=== PATIENT | female | born 1955 | race Caucasian/White ===

== ENCOUNTER → 2017-06-11 | Outpatient (CLI) | payer BC, SELFPAY | PROVIDERS: Visit Provider Internal Medicine | DX: R11.10 Vomiting, unspecified (principal) ==

== ENCOUNTER → 2017-06-20 | Outpatient (CLI) | payer BC, SELFPAY | PROVIDERS: PCP Internal Medicine; Visit Provider Internal Medicine | DX: R11.10 Vomiting, unspecified (principal) | CPT/HCPCS: 78264; A9541 ==

== ENCOUNTER → 2017-10-15 10:54 | Outpatient (CLI) | payer BC, SELFPAY ==
[2017-10-15 12:40] LABS: Alanine Aminotransferase 37 U/L (12-78); Albumin Level 4.1 gm/dL (3.4-5.0); Albumin/Globulin Ratio 1.1 (1.1-1.8); Alkaline Phosphatase 74 U/L (46-116); Anion Gap 13.1 mEq/L (5-15); Aspartate Amino Transferase 27 U/L (15-37); Bilirubin,Total 0.6 mg/dL (0.2-1.0); Blood Urea Nitrogen 18 mg/dL (7-18); Calcium 9.6 mg/dL (8.5-10.1); Carbon Dioxide 30 mmol/L (21.0-32.0); Chloride 104 mmol/L (98-107); Chol/HDL Ratio 2.2 (1-3.5); Cholesterol 207 mg/dL (140-200); Creatinine,Serum 0.86 mg/dL (0.55-1.02); Estimated Glomerular Filt Rate 67 ml/min (>60); GFR (African American) 81 ML/MIN (>60); Globulin 3.6 gm/dl (1.3-3.2); Glucose 95 mg/dL (74-106); HDL Cholesterol 94 mg/dL (29-89); LDL Cholesterol 89 mg/dL (0-130); Potassium 4.1 mmoL/L (3.5-5.1); Sodium 143 mmol/L (136-145); Thyroid Stimulating Hormone 1.47 uIU/ml (0.358-3.740); Total Protein,Serum 7.7 gm/dL (6.4-8.2); Triglycerides 120 mg/dL (30-200); VLDL Cholesterol 24 mg/dL (0-40)
[2017-10-18 12:42] LABS: Vitamin D 25 Hydroxy 21.9 ng/mL (30.0-100.0)
[2017-10-18 12:43] LABS: H. pylori Breath Test Negative (Negative)
== END ==
PROVIDERS: Visit Provider Internal Medicine
DX: R10.13 Epigastric pain (principal); R11.0 Nausea; E55.9 Vitamin D deficiency, unspecified; E78.5 Hyperlipidemia, unspecified; K31.84 Gastroparesis; R53.83 Other fatigue; B39.4 Histoplasmosis capsulati, unspecified; B39.3 Disseminated histoplasmosis capsulati; Z79.899 Other long term (current) drug therapy
CPT/HCPCS: 36415; 80053; 80061; 82652; 83013; 84443

== ENCOUNTER → 2017-11-13 14:39 | Outpatient (CLI) | payer BC, SELFPAY ==
--- NOTE | 2017-11-13 14:44 | XR_ITS ---
EXAM: XR lumbar spine min 4V HISTORY: ITS.REASON: LBP RADIATING TO RT HIP ORDERING PHYSICIAN: Ablerto Rowley PATIENT AGE: 62 years COMPARISON: None FINDINGS: Normal alignment. No fracture or dislocation. No lytic or blastic change. There is mild degenerative disc disease at L3-L4 with slight decrease in the disc space and small anterior osteophytes. The SI joints have an unremarkable appearance. Incidental note made of abdominal aortic calcification. IMPRESSION: Degenerative disc disease L3-L4
== END ==
PROVIDERS: PCP Internal Medicine; Visit Provider Internal Medicine
DX: M54.41 Lumbago with sciatica, right side (principal)
CPT/HCPCS: 72110

== ENCOUNTER 2018-01-09 02:10 | Observation (INO) ==
[2018-01-09 03:03] LABS: Basophils % 0.4 % (0.1-2.0); Eosinophils # 0.1 K/mm3 (0.0-0.4); Hematocrit 41.8 % (37.0-47.0); Hemoglobin 13.7 g/dL (12.2-16.2); Lymphocytes # 0.6 K/mm3 (0.7-4.5); Lymphocytes % 5.1 K/mm3 (10-50); Mean Corpuscular HGB Conc 32.7 g/dL (31.8-35.4); Mean Corpuscular Hemoglobin 29.2 pg (27.0-31.2); Mean Corpuscular Volume 89.3 fl (81-99); Mean Platelet Volume 9.2 fl (7.4-10.4); Monocytes # 0.4 K/mm3 (0.1-1.0); Neutrophils # 10.3 K/mm3 (1.8-7.8); Neutrophils % 90.5 % (37.0-80.0); Platelet Count 238 K/mm3 (142-424); Red Blood Count 4.68 M/mm3 (4.20-5.40); Red Cell Distribution Width 12.8 % (11.5-17.5); White Blood Count 11.4 K/mm3 (4.8-10.8)
[2018-01-09 03:10] LABS: Amylase 43 U/L (25-125); Lipase 133 u/L (73-393)
--- NOTE | 2018-01-09 03:10 | Emergency Department Note ---
ED Disposition Clinical Impression: Enteritis, Vasovagal episode Disposition: Admitted as Observation Condition on Discharge: Good Instructions: DI for Diarrhea and Traveler's Diarrhea -- Adult, DI for Diarrhea and Traveler's Diarrhea -- Child, DI for Nausea -- Adult, DI for Nausea -- Child Referrals: Alberto Rowley [Primary Care Provider] - - Critical Care Critical Care Time: No Attestation: On 01/09/18, the high probability of a clinically significant, sudden or life threatening deterioration of the following system(s) required my full and direct attention, intervention and personal management. The time I documented below is in addition to time spent performing reported procedures but includes the following listed in this critical care notation. Medical Decision Making - Medical Records Medical records reviewed: Yes: I reviewed the patient's medical records. - [place] Inquiry Pt receiving controlled substance: No Vital Signs: 01/09/18 02:12 01/09/18 02:59 Temperature 98.1 F Temperature Source Oral Pulse Rate [Right Radial] 75 83 Respiratory Rate 18 14 Blood Pressure [Right Arm] 119/55 134/96 Blood Pressure Mean [Right Arm] 76 108 Blood Pressure Source [Right Arm] Automatic Cuff Automatic Cuff Blood Pressure Position [Right Arm] Sitting Supine 02 Sat by Pulse Oximetry 99 91 L Oxygen Delivery Method Room Air Room Air - Lab Data Lab results reviewed: Yes: I reviewed the patient's lab results. Lab Results 01/09/18 02:43: WBC 11.4 H, RBC 4.68, Hgb 13.7, Hct 41.8, MCV 89.3, MCH 29.2, MCHC 32.7, RDW 12.8, Plt Count 238, MPV 9.2, Neut % (Auto) 90.5 H, Lymph % (Auto ) 5.1 L, [place] % (Auto) 3.0, Eos % (Auto) 1.0, Baso % (Auto) 0.4, Neut # (Auto) 10.3 H, Lymph # (Auto) 0.6 L, [place] # (Auto) 0.4, Eos # (Auto) 0.1, Baso # (Auto ) 0.0, Total Counted 100, Neutrophils % (Manual) 94 H, Lymphocytes % (Manual) 4 L, Monocytes % (Manual) 1 L, Eosinophils % (Manual) 1, Platelet Estimate Normal , Anisocytosis 1+ 01/09/18 02:43: Troponin I < 0.02, Amylase 43, Lipase 133 01/09/18 02:43: Lactic Acid 1.6 01/09/18 02:43: Sodium 140, Potassium 3.9, Chloride 104, Carbon Dioxide 29, Anion Gap 10.9, BUN 19 H, Creatinine 0.94, Estimated Creat Clear 62, Estimated GFR 60, Est GFR ( Amer) 73, Glucose 135 H, Calcium 9.1, Total Bilirubin 0.7, Direct Bilirubin 0.1, Indirect Bilirubin 0.6, AST 22, ALT 32, Alkaline Phosphatase 76, Total Protein 7.4, Albumin 4.0 01/09/18 02:43: C-Reactive Protein 0.5 01/09/18 03:44: ESR 12 Result diagrams: 01/09/18 02:43 01/09/18 02:43 Orders (Tests/Meds): ED MEDICATIONS Discontinued Medications Generic Name Dose Route Start Last Admin Trade Name Freq PRN Reason Stop Dose Admin Ondansetron HCl 4 mg 01/09/18 04:59 01/09/18 05:03 Zofran 4mg/2ml Vial IV 01/09/18 05:00 4 mg ONCE ONE Administration ORDERS Category Date Time Status CT abdomen pelvis wo con Stat Cat Scan 01/09/18 02:[address] cervical spine wo con Stat Cat Scan 01/09/18 02:[address] head/brain wo con Stat Cat Scan 01/09/18 02:36 Taken - CT Data CT Scan: Head, C-Spine, Abdomen, Pelvis Time Received: 05:[address] Reviewed: Yes: I have viewed the radiologist's interpretation Preliminary Findings: Abnormal (prob enteritis ) - ECG Data Tracing #1 I reviewed this ECG and interpreted as documented below: Arrhythmias present: sinus tach Ischemic changes: non-specific ST-T wave changes - Physician Consults Physician Consulted: amarjit Reason -: Admission Nausea/Vomiting/Diarrhea HPI - General Chief complaint: Nausea/Vomiting/Diarrhea Stated complaint: Passing Out,Nausea and Vomiting Time Seen by Provider: 01/09/18 02:15 Mode of Arrival: Ambulatory Source of Information: Patient, Spouse, Medical Record Limitations: No Limitations Description of Symptoms (Recalled from ER Triage Doc. by RN): diarrhea, nausea, vomitting - experienced syncope with vomitting, ate cracker barrell for lunch - History of Present Illness HPI Narrative: wf with acute onset of n/v with loose stool but no fever or blood in stool - crampy type pain - also has prob vasovagal episodes this am MD complaint: nausea, vomiting, diarrhea, abdominal pain Onset (ago): hour(s) Associated Abdominal Pain: Yes Location of pain: periumbilical Severity: moderate Consistency: colicky Context: possible food poisoning Associated symptoms: syncope - Related Data Home Medications Medication Instructions Recorded Confirmed Omeprazole [Omeprazole 20mg 1 cap PO DAILY 01/09/18 01/09/18 Capsule] Pitavastatin Calcium [Livalo] 2 mg PO WEEKLY 01/09/18 01/09/18 Ropinirole HCl 1 tab PO HS 01/09/18 01/09/18 Allergies Allergy/AdvReac Type Severity Reaction Status Date / Time No Known Allergies Allergy Unverified 06/11/17 14:18 [facility] History I have reviewed the patient's past medical history: Yes Medical History: Denies:: Cancer, Diabetes Mellitus Type 1, Diabetes Mellitus Type 2, MRSA Amputation: No Fractures: No - Social History Alcohol Intake: never - Psychiatric History Expresses thoughts of harming self/others: None Suicide Plan Description: No Plan ROS Obtained: Yes All systems reviewed & no additional complaints - Constitutional Constitutional: Denies fever(s) - Eyes Eyes: Denies change in vision - ENT Ears, Nose, Mouth, and Throat: Denies sore throat - Cardiovascular Cardiovascular: Reports as per HPI, Denies chest pain at rest, Reports lightheadedness - Respiratory Respiratory: No cough - Gastrointestinal Gastrointestingal: Reports: as per HPI, abdominal pain, diarrhea, nausea, vomiting. Denies: bright red blood in stools, black, tarry stools - Genitourinary Female Genitourinary: Denies hematuria - Musculoskeletal Musculoskeletal: Denies joint pain, Denies joint swelling - Integumentary/Breasts Skin/Breast: Denies rash - Neurologic Neurologic: Denies headache(s), Denies seizure-like activity Physical Exam - General General appearance: in no apparent distress - Head Head exam: normocephalic - Eye Eye exam: Present: PERRL, EOMI - ENT ENT exam: Present: mucous membranes moist - Neck Neck exam: Present: trachea midline - Respiratory Respiratory exam: Present: normal lung sounds bilaterally. Absent: respiratory distress - Cardiovascular Cardiovascular exam: Present: regular rate, systolic murmur - Abdominal Exam Abdominal exam: Present: soft, tenderness Abdominal tenderness: Present: epigastrium - Extremities Exam Extremities exam: Present: full ROM - Neurological Exam Neurological exam: Present: alert, oriented X3, CN II-XII intact. Absent: motor sensory deficit - Psychiatric Psychiatric exam: Present: normal affect - Skin Skin exam: Absent: rash
[2018-01-09 03:24] LABS: Anion Gap 10.9 mEq/L (5-15); Bilirubin,Direct 0.1 mg/dL (0.0-0.2); Bilirubin,Indirect 0.6 mg/dL (0.0-0.9); Bilirubin,Total 0.7 mg/dL (0.2-1.0); Calcium 9.1 mg/dL (8.5-10.1); Potassium 3.9 mmoL/L (3.5-5.1); Total Protein,Serum 7.4 gm/dL (6.4-8.2)
[2018-01-09 05:07] LABS: Eosinophils % 1 % (0-3); Lymphocytes % 4 % (10-50); Monocytes % 1 % (2-9); Neutrophils % 94 % (42-76); Total Cells Counted 100
[2018-01-09 05:08] LABS: Anisocytosis 1+
--- NOTE | 2018-01-09 07:40 | Pharmacy Consult Notes ---
[facility] Pharmacy VTE Monitoring - Patient Demographics Admission date: 01/09/18 Report Date: 01/09/18 Time: 07:40 Allergies/Adverse Reactions: Patient Allergies No Known Allergies Allergy (Unverified 06/11/17 14:18) Height: 1.55 m Weight: 68.039 kg Patient Problems: Current Active Problems Enteritis (Acute) Vasovagal episode (Acute) - VTE Risk Labs: VTE Related Lab Results Hgb 13.7 g/dL (12.2-16.2) 01/09/18 02:43 Hct 41.8 % (37.0-47.0) 01/09/18 02:43 Plt Count 238 K/mm3 (142-424) 01/09/18 02:43 BUN 19 mg/dL (7-18) H 01/09/18 02:43 Creatinine 0.94 mg/dL (0.55-1.02) 01/09/18 02:43 Estimated Creat Clear 62 mL/min (0-300) 01/09/18 02:43 Was VTE Risk Assessment Performed: Yes VTE Score: 1 VTE Risk Level: Very Low Risk - Prophylaxis VTE Prophylaxis Ordered?: Yes Types of VTE Prophylaxis: TEDS Knee High Location of Applied Device: Bilateral Lower Extremeties - VTE Diagnosis Confirmed Treatment or plan recommended: Continue Current Treatment
[2018-01-09 08:22] VITALS: BP 111/47
--- NOTE | 2018-01-09 13:34 | H&P/Discharge Summary ---
General - General Admission date:: 01/09/18 Discharge date: 01/09/18 *Admission Date: 01/09/18 *Chief complaint: vomiting and diarrhea *History of present illness: 62 year old female presented to the ED with acute onset of vomiting and diarrhea that began last evening. She reports two syncopal episodes, one that occurred when she got out of bed and the other while she was sitting on the toilet having a bowel movement. In the ED, labs were unremarkable. CT showed mild enteritis. She was admitted to observation for IVF's and further evaluation. Today, patient reports no further vomiting. She has had one episode of diarrhea. No further syncopal/near syncopal events or dizziness. [facility] History I have reviewed the patient's past medical history: Yes Medical History: Reports:: Myocardial Infarction Denies:: Cancer, Diabetes Mellitus Type 1, Diabetes Mellitus Type 2, MRSA Other Surgeries: Yes: Appendectomy, Hysterectomy-Total, Tubal Ligation, Other ( surgery on septum) Amputation: No Fractures: No - *Social History Educational Level: Completed High School Alcohol Intake: never Occupational Status: retired Housing: house Household Members: spouse - Psychiatric History Expresses thoughts of harming self/others: None Suicide Plan Description: No Plan *Family Hx:: Coronary Artery Disease, Diabetes Review of Systems - Review of Systems Review of systems:: pertinent systems reviewed and negative unless documented below - Constitutional Reports fever(s), Reports malaise - *Gastrointestinal Reports abdominal pain, Reports loose stools, Reports nausea, Reports vomiting - *Neurologic Reports dizziness, Denies headache(s), Denies seizure-like activity Exam Vital signs and Labs for Last 24 Hours: Temp Pulse Resp BP Pulse Ox 98.0 F 78 16 111/47 98 01/09/18 08:00 01/09/18 08:00 01/09/18 08:00 01/09/18 08:00 01/09/18 08:00 Laboratory Results - last 24 hr 01/09/18 02:43: WBC 11.4 H, RBC 4.68, Hgb 13.7, Hct 41.8, MCV 89.3, MCH 29.2, MCHC 32.7, RDW 12.8, Plt Count 238, MPV 9.2, Neut % (Auto) 90.5 H, Lymph % (Auto ) 5.1 L, [place] % (Auto) 3.0, Eos % (Auto) 1.0, Baso % (Auto) 0.4, Neut # (Auto) 10.3 H, Lymph # (Auto) 0.6 L, [place] # (Auto) 0.4, Eos # (Auto) 0.1, Baso # (Auto ) 0.0, Total Counted 100, Neutrophils % (Manual) 94 H, Lymphocytes % (Manual) 4 L, Monocytes % (Manual) 1 L, Eosinophils % (Manual) 1, Platelet Estimate Normal , Anisocytosis 1+ 01/09/18 02:43: Troponin I < 0.02, Amylase 43, Lipase 133 01/09/18 02:43: Lactic Acid 1.6 01/09/18 02:43: Sodium 140, Potassium 3.9, Chloride 104, Carbon Dioxide 29, Anion Gap 10.9, BUN 19 H, Creatinine 0.94, Estimated Creat Clear 62, Estimated GFR 60, Est GFR ( Amer) 73, Glucose 135 H, Calcium 9.1, Total Bilirubin 0.7, Direct Bilirubin 0.1, Indirect Bilirubin 0.6, AST 22, ALT 32, Alkaline Phosphatase 76, Total Protein 7.4, Albumin 4.0 01/09/18 02:43: C-Reactive Protein 0.5 01/09/18 03:44: ESR 12 01/09/18 10:50: Stl Aeromonas (PCR) Not detected, Stl C. cayetanensis PCR Not detected, Stool Rotavirus (PCR) Not detected, Stl Adenov F 40/41 PCR Not detected, Stool Astrovirus (PCR) Not detected, Stool Campylobacter PCR Not detected, Stl C.difficile Tox PCR Not detected, Stool Cryptosporidium PCR Not detected, Stl E.coli Shiga Tox PCR Not detected, Stool E coli O157 PCR Not detected, Stl Enterotoxigenic E PCR Not detected, Stool EPEC (PCR) Not detected , Stool EAEC (PCR) Not detected, Stl E. histolytica PCR Not detected, Stool Giardia Lamblia PCR Not detected, Stool Salmonella PCR Not detected, Stool Sapovirus (PCR) Not detected, Stl P. shigelloides PCR Not detected, Stl Shigella /EIEC PCR Not detected, St Y.enterocolitica PCR Not detected, Stool Vibrio (PCR ) Not detected, Stl Vibrio cholerae PCR Not detected, Stl Norovirus GI/GII PCR Detected A I & O for Last 24 hours: Intake & Output 01/07/18 01/08/18 01/09/18 01/10/18 11:59 11:59 11:59 11:59 Intake Total 1000 / 1000 Balance 1000 / 1000 Weight 150 lb Narrative: Alert and oriented x3. Rate and rhythm regular. No LE edema. Lung sounds clear. Abdomen soft, with diffuse tenderness. Normoactive bowel sounds. Skin pink, warm and dry. No rash. Mucous membranes moist Hospital Course Hospital Course: Patient was admitted to observation. She has not had any further vomiting. Diarrhea panel was obtained which was positive for Norovirus. Her diet was slowly advanced which she tolerated well. No further dizziness. Syncopal episodes were likely vasovagal events. Discharge home with zofran PRN. See medication reconciliation for complete list. [place]/low fat diet. FU with Dr. Rowley in one week. Results Labs on day of discharge: Labs from last 24 hours 01/09/18 01/09/18 01/09/18 10:50 03:44 02:43 WBC RBC Hgb Hct MCV MCH MCHC RDW Plt Count MPV Neut % (Auto) Lymph % (Auto) [place] % (Auto) Eos % (Auto) Baso % (Auto) Neut # (Auto) Lymph # (Auto) [place] # (Auto) Eos # (Auto) Baso # (Auto) Total Counted Neutrophils % (Manual) Lymphocytes % (Manual) Monocytes % (Manual) Eosinophils % (Manual) Platelet Estimate Anisocytosis ESR 12 Sodium Potassium Chloride Carbon Dioxide Anion Gap BUN Creatinine Estimated Creat Clear Estimated GFR Est GFR ( Amer) Glucose Lactic Acid Calcium Total Bilirubin Direct Bilirubin Indirect Bilirubin AST ALT Alkaline Phosphatase Troponin I C-Reactive Protein 0.5 Total Protein Albumin Amylase Lipase Stl Aeromonas (PCR) Not detected Stl C. cayetanensis PCR Not detected Stool Rotavirus (PCR) Not detected Stl Adenov F 40/41 PCR Not detected Stool Astrovirus (PCR) Not detected Stool Campylobacter PCR Not detected Stl C.difficile Tox PCR Not detected Stool Cryptosporidium PCR Not detected Stl E.coli Shiga Tox PCR Not detected Stool E coli O157 PCR Not detected Stl Enterotoxigenic E PCR Not detected Stool EPEC (PCR) Not detected Stool EAEC (PCR) Not detected Stl E. histolytica PCR Not detected Stool Giardia Lamblia PCR Not detected Stool Salmonella PCR Not detected Stool Sapovirus (PCR) Not detected Stl P. shigelloides PCR Not detected Stl Shigella/EIEC PCR Not detected St Y.enterocolitica PCR Not detected Stool Vibrio (PCR) Not detected Stl Vibrio cholerae PCR Not detected Stl Norovirus GI/GII PCR Detected A 01/09/18 01/09/18 01/09/18 02:43 02:43 02:43 WBC RBC Hgb Hct MCV MCH MCHC RDW Plt Count MPV Neut % (Auto) Lymph % (Auto) [place] % (Auto) Eos % (Auto) Baso % (Auto) Neut # (Auto) Lymph # (Auto) [place] # (Auto) Eos # (Auto) Baso # (Auto) Total Counted Neutrophils % (Manual) Lymphocytes % (Manual) Monocytes % (Manual) Eosinophils % (Manual) Platelet Estimate Anisocytosis ESR Sodium 140 Potassium 3.9 Chloride 104 Carbon Dioxide 29 Anion Gap 10.9 BUN 19 H Creatinine 0.94 Estimated Creat Clear 62 Estimated GFR 60 Est GFR ( Amer) 73 Glucose 135 H Lactic Acid 1.6 Calcium 9.1 Total Bilirubin 0.7 Direct Bilirubin 0.1 Indirect Bilirubin 0.6 AST 22 ALT 32 Alkaline Phosphatase 76 Troponin I < 0.02 C-Reactive Protein Total Protein 7.4 Albumin 4.0 Amylase 43 Lipase 133 Stl Aeromonas (PCR) Stl C. cayetanensis PCR Stool Rotavirus (PCR) Stl Adenov F 40/41 PCR Stool Astrovirus (PCR) Stool Campylobacter PCR Stl C.difficile Tox PCR Stool Cryptosporidium PCR Stl E.coli Shiga Tox PCR Stool E coli O157 PCR Stl Enterotoxigenic E PCR Stool EPEC (PCR) Stool EAEC (PCR) Stl E. histolytica PCR Stool Giardia Lamblia PCR Stool Salmonella PCR Stool Sapovirus (PCR) Stl P. shigelloides PCR Stl Shigella/EIEC PCR St Y.enterocolitica PCR Stool Vibrio (PCR) Stl Vibrio cholerae PCR Stl Norovirus GI/GII PCR 01/09/18 02:43 WBC 11.4 H RBC 4.68 Hgb 13.7 Hct 41.8 MCV 89.3 MCH 29.2 MCHC 32.7 RDW 12.8 Plt Count 238 MPV 9.2 Neut % (Auto) 90.5 H Lymph % (Auto) 5.1 L [place] % (Auto) 3.0 Eos % (Auto) 1.0 Baso % (Auto) 0.4 Neut # (Auto) 10.3 H Lymph # (Auto) 0.6 L [place] # (Auto) 0.4 Eos # (Auto) 0.1 Baso # (Auto) 0.0 Total Counted 100 Neutrophils % (Manual) 94 H Lymphocytes % (Manual) 4 L Monocytes % (Manual) 1 L Eosinophils % (Manual) 1 Platelet Estimate Normal Anisocytosis 1+ ESR Sodium Potassium Chloride Carbon Dioxide Anion Gap BUN Creatinine Estimated Creat Clear Estimated GFR Est GFR ( Amer) Glucose Lactic Acid Calcium Total Bilirubin Direct Bilirubin Indirect Bilirubin AST ALT Alkaline Phosphatase Troponin I C-Reactive Protein Total Protein Albumin Amylase Lipase Stl Aeromonas (PCR) Stl C. cayetanensis PCR Stool Rotavirus (PCR) Stl Adenov F 40/41 PCR Stool Astrovirus (PCR) Stool Campylobacter PCR Stl C.difficile Tox PCR Stool Cryptosporidium PCR Stl E.coli Shiga Tox PCR Stool E coli O157 PCR Stl Enterotoxigenic E PCR Stool EPEC (PCR) Stool EAEC (PCR) Stl E. histolytica PCR Stool Giardia Lamblia PCR Stool Salmonella PCR Stool Sapovirus (PCR) Stl P. shigelloides PCR Stl Shigella/EIEC PCR St Y.enterocolitica PCR Stool Vibrio (PCR) Stl Vibrio cholerae PCR Stl Norovirus GI/GII PCR DS: Diagnosis - Discharge Diagnosis (1) Gastroenteritis and colitis, viral Status: Acute (2) Vasovagal episode Status: Resolved Discharge Medications Discharge Medications: Home Medications Medication Instructions Recorded Confirmed Type Aspirin [Aspir 81] 81 mg PO PM 01/09/18 01/09/18 History Omeprazole [Omeprazole 20mg 20 mg PO PM 01/09/18 01/09/18 History Capsule] Pitavastatin Calcium [Livalo] 2 mg PO WEEKLY 01/09/18 01/09/18 History Polyethylene Glycol 3350 [Miralax 17 gm PO DAILYP PRN 01/09/18 01/09/18 History 17gm Packet] Disposition Disposition: Home, Self-Care
== END 2018-01-09 15:30 | disposition home or self-care (01) ==
LOC: ER 02:10 → 2ND 02:10
PROVIDERS: ADMIT Internal Medicine Adolescent Medicine; ATTEND Internal Medicine Adolescent Medicine
CPT/HCPCS: 70450; 72125; 74176; 80048; 80076; 82150; 83605; 83690; 84484; 85007; 85025; 85651; 86140; 87507; 93005; 96365; 96375; 96376; 99284; G0378; J2405

== ENCOUNTER → 2018-03-25 08:44 | Outpatient (CLI) | payer BC, SELFPAY ==
--- NOTE | 2018-03-25 08:46 | MM_ITS ---
MM Dig screening mamm BI w/CAD ORDERING PHYSICIAN : Alberto Rowley PATIENT AGE: 62 years GENDER: Female COMPARISON: December 2016, October 2015, September 2014 INDICATION: ITS.REASON: SCREENING Patient takes Irosa. No hormones no new complaints family history. Cousin with breast cancer TECHNIQUE: Standard CC and MLO images were obtained. R2 CAD reviewed. FINDINGS: Moderately dense breast bilaterally . Stable mild asymmetry No new areas of significant concern. No new suspicious density suspicious calcifications. RIGHT BREAST:. However overall architecture is stable. Increased density towards the superior, upper-outer quadrant breast bilaterally most notable right, its appearance is similar to last years study as well as 2010 study. LEFT BREAST:. No new areas of concern. IMPRESSION: ... No significant new areas of concern bilateral follow-up in one year BI-RADS Category: 2 Benign Finding(s) RECOMMENDED FOLLOW-UP: 1YR 1 YEAR FOLLOW-UP (A letter has been sent to the patient regarding results of the study.)
== END ==
PROVIDERS: Family Provider Internal Medicine; PCP Internal Medicine; Visit Provider Internal Medicine
DX: Z12.31 Encounter for screening mammogram for malignant neoplasm of breast (principal)
CPT/HCPCS: 77067

== ENCOUNTER → 2018-08-25 07:39 | Outpatient (CLI) | payer BC, SELFPAY ==
--- NOTE | 2018-08-25 08:00 | US_ITS ---
US abdomen limited History: Ordering Physician:Alberto Rowley Patient Age: 63 years Comparison:None Findings: Pancreas:Unremarkable. No obvious mass or abnormal fluid collection. No ductal dilatation Liver:Unremarkable. No obvious mass or abnormal fluid collection. No ductal dilatation Right Kidney:Unremarkable. Normal size and echogenicity. No hydronephrosis Gallbladder: There are gallstones present. No gallbladder wall thickening, pericholecystic fluid, or biliary dilatation is evident. Common bile duct is 4 mm. IMPRESSION: Cholelithiasis
== END ==
PROVIDERS: PCP Internal Medicine; Visit Provider Internal Medicine
DX: R12 Heartburn (principal)
CPT/HCPCS: 76705

== ENCOUNTER → 2018-09-29 12:53 | Outpatient (CLI) | payer BC, SELFPAY ==
[2018-09-29 13:21] LABS: Basophils # 0.1 K/mm3 (0-0.2); Basophils % 0.7 % (0.1-2.0); Eosinophils # 0.1 K/mm3 (0.0-0.4); Eosinophils % 2.4 % (0.1-12.0); Hematocrit 40.3 % (37.0-47.0); Hemoglobin 13.4 g/dL (12.2-16.2); Lymphocytes # 1.9 K/mm3 (0.7-4.5); Lymphocytes % 31.3 % (10-50); Mean Corpuscular HGB Conc 33.2 g/dL (31.8-35.4); Mean Corpuscular Hemoglobin 29.9 pg (27.0-31.2); Mean Platelet Volume 7.9 fl (7.4-10.4); Monocytes # 0.3 K/mm3 (0.1-1.0); Monocytes % 4.7 % (1.7-9.3); Neutrophils # 3.7 K/mm3 (1.8-7.8); Neutrophils % 60.9 % (37.0-80.0); Platelet Count 266 K/mm3 (142-424); Red Blood Count 4.47 M/mm3 (4.20-5.40); Red Cell Distribution Width 13.1 % (11.5-17.5); White Blood Count 6.1 K/mm3 (4.8-10.8)
[2018-09-29 14:31] LABS: Alanine Aminotransferase 46 U/L (12-78); Albumin/Globulin Ratio 1.1 (1.1-1.8); Alkaline Phosphatase 75 U/L (46-116); Anion Gap 15.9 mEq/L (5-15); Aspartate Amino Transferase 29 U/L (15-37); Bilirubin,Total 0.5 mg/dL (0.2-1.0); Blood Urea Nitrogen 11 mg/dL (7-18); Calcium 9.3 mg/dL (8.5-10.1); Carbon Dioxide 27 mmol/L (21.0-32.0); Chloride 104 mmol/L (98-107); Creatinine,Serum 0.86 mg/dL (0.55-1.02); Estimated Glomerular Filt Rate 66 ml/min (>60); GFR (African American) 80 ML/MIN (>60); Globulin 3.7 gm/dl (1.3-3.2); Glucose 104 mg/dL (74-106); Potassium 3.9 mmoL/L (3.5-5.1); Sodium 143 mmol/L (136-145); Total Protein,Serum 7.7 gm/dL (6.4-8.2)
== END ==
PROVIDERS: Visit Provider Surgery
DX: K82.9 Disease of gallbladder, unspecified (principal)
CPT/HCPCS: 36415; 80053; 85025

== ENCOUNTER → 2019-01-29 07:59 | Outpatient (POV) | payer BC, SELFPAY | PROVIDERS: Visit Provider Dentist | DX: Z00.00 Encounter for general adult medical examination without abnormal findings (principal) ==

== ENCOUNTER → 2019-04-02 08:29 | Outpatient (POV) | payer BC, SELFPAY | PROVIDERS: Visit Provider Dentist | DX: Z00.00 Encounter for general adult medical examination without abnormal findings (principal) ==

== ENCOUNTER → 2019-05-01 09:53 | Outpatient (CLI) | payer BC, SELFPAY ==
[2019-05-01 10:30] LABS: Basophils # 0.1 K/mm3 (0-0.2); Basophils % 0.8 % (0.1-2.0); Eosinophils # 0.2 K/mm3 (0.0-0.4); Eosinophils % 3.1 % (0.1-12.0); Hemoglobin 13.2 g/dL (12.2-16.2); Lymphocytes # 1.9 K/mm3 (0.7-4.5); Lymphocytes % 28.7 % (10-50); Mean Corpuscular HGB Conc 32.2 g/dL (31.8-35.4); Mean Corpuscular Hemoglobin 31.1 pg (27.0-31.2); Mean Corpuscular Volume 96.6 fl (81-99); Mean Platelet Volume 8.5 fl (7.4-10.4); Monocytes # 0.4 K/mm3 (0.1-1.0); Neutrophils # 4.2 K/mm3 (1.8-7.8); Neutrophils % 61.5 % (37.0-80.0); Platelet Count 232 K/mm3 (142-424); Red Blood Count 4.25 M/mm3 (4.20-5.40); Red Cell Distribution Width 13.2 % (11.5-17.5); White Blood Count 6.7 K/mm3 (4.8-10.8)
[2019-05-01 11:43] LABS: Alanine Aminotransferase 34 U/L (12-78); Albumin Level 3.9 gm/dL (3.4-5.0); Albumin/Globulin Ratio 1.3 (1.1-1.8); Alkaline Phosphatase 67 U/L (46-116); Anion Gap 10.7 mEq/L (5-15); Aspartate Amino Transferase 26 U/L (15-37); Bilirubin,Total 0.5 mg/dL (0.2-1.0); Blood Urea Nitrogen 13 mg/dL (7-18); Calcium 9.2 mg/dL (8.5-10.1); Carbon Dioxide 32 mmol/L (21.0-32.0); Chloride 105 mmol/L (98-107); Chol/HDL Ratio 2.6 (1-3.5); Cholesterol 229 mg/dL (140-200); Estimated Glomerular Filt Rate 72 ml/min (>60); GFR (African American) 87 ML/MIN (>60); Globulin 3.1 gm/dl (1.3-3.2); Glucose 95 mg/dL (74-106); HDL Cholesterol 88 mg/dL (29-89); LDL Cholesterol 117 mg/dL (0-130); Potassium 4.7 mmoL/L (3.5-5.1); Sodium 143 mmol/L (136-145); Thyroid Stimulating Hormone 2.07 uIU/ml (0.358-3.740); Triglycerides 118 mg/dL (30-200); VLDL Cholesterol 24 mg/dL (0-40)
[2019-05-01 15:44] LABS: Erythrocyte Sedimentation Rate 131 mm/hr (0-30)
== END ==
PROVIDERS: Visit Provider Internal Medicine
DX: K21.0 Gastro-esophageal reflux disease with esophagitis (principal); K31.84 Gastroparesis; R10.9 Unspecified abdominal pain
CPT/HCPCS: 36415; 80053; 80061; 84443; 85025; 85651

== ENCOUNTER → 2019-05-11 08:49 | Outpatient (CLI) | payer BC, SELFPAY ==
--- NOTE | 2019-05-11 08:57 | MM_ITS ---
PROCEDURE: MM DIG SCREENING MAMM BI W/CAD CLINICAL INDICATION: SCREENING There is a history of breast cancer patient's maternal cousin. COMPARISON: [facility] DIG MAMM-SCREEN MARY from 10/26/2015 [facility] DIG MAMM-SCREEN MARY W/CAD from 12/24/2016 [facility] MM Dig screening mamm BI w/CAD from 03/25/2018 TECHNIQUE: Standard CC and MLO images were obtained. R2 CAD reviewed. FINDINGS: Moderate fibroglandular densities are seen in the central portions of both breast and the findings of bilateral and symmetrical. There are few benign-appearing microcalcifications right breast. There is no suspicious lesion in either breast and no suspicious microcalcifications. There is small nodes in both axilla. IMPRESSION: Stable exam with no suspicious lesions seen BI-RAD Category: 2 Benign Finding(s) FOLLOW-UP: 1YR 1 Year Follow-up (A letter has been sent to the patient regarding results of the study.) Dictated by: Dr. Emmett Baker MD 05/12/2019 19:[address] Emmett Baker MD in [place] 05/12/2019 19:48
== END ==
PROVIDERS: PCP Internal Medicine; Visit Provider Internal Medicine
DX: Z12.31 Encounter for screening mammogram for malignant neoplasm of breast (principal)
CPT/HCPCS: 77067

== ENCOUNTER → 2019-05-12 07:52 | Outpatient (CLI) | payer BC, SELFPAY ==
--- NOTE | 2019-05-12 07:54 | MR_ITS ---
PROCEDURE: MR LUMBAR SPINE WO CON CLINICAL INDICATION: LUMBAGO LEFT SCIATICA The low back pain, left leg pain with numbness COMPARISON: No exams were available for comparison TECHNIQUE: Standard multiplanar multiecho sequences are performed without contrast. 3-D MIP and myelographic images are also rendered and reviewed FINDINGS: Normal alignment. The spinal cord ends at the L1-L2 level. There is a small left paracentral disc protrusion at T11-T12 without impingement. T12-L1: Unremarkable. L1-L2: Unremarkable. L2-L3: Mild facet and ligamentum hypertrophy with mild bilateral lateral recess narrowing. L3-L4: Facet ligamentum hypertrophy with mild bilateral lateral recess narrowing. Mild right-sided foraminal narrowing. Mild disc desiccation. L4-5: Mild facet ligamentum hypertrophy. L5-S1: Mild disc desiccation with mild facet and ligamentum hypertrophy and mild bilateral foraminal narrowing. No disc herniation or canal stenosis. IMPRESSION: 1. Small left paracentral disc protrusion at T11-T12 without impingement. 2. Facet ligamentum hypertrophy at multiple levels with lateral recess and foraminal narrowing along with mild degenerative disc disease. 3. No extruded herniated disc or bony canal stenosis Dictated by: Pedro Tyson MD 05/13/2019 09:22 Electronically signed by Pedro Tyson MD in [facility] 05/13/2019 09:22
--- NOTE | 2019-05-12 10:00 | NM_ITS ---
PROCEDURE: NM GASTRIC EMPTYING STUDY CLINICAL INDICATION: GASTROPARESIS COMPARISON: No exams were available for comparison TECHNIQUE: Dose: 0.51 mCi technetium sulfur colloid in a radial labeled medial FINDINGS: Time activity curve is generated following the ingestion of the radial labeled meal. The 1/2 emptying time is within normal limits at 81 minutes. 48 percent of the gastric contents had emptied during 89 minutes. Images submitted show no obvious gastroesophageal reflux. IMPRESSION: Normal gastric emptying scan Dictated by: Pedro Tyson MD 05/12/2019 19:21 Electronically signed by Pedro Tyson MD in [facility] 05/12/2019 19:21
--- NOTE | 2019-05-12 10:50 | HMH.ITSHM ---
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 []DHEA MIRALAX LIVALO PROTONIX ASA OCUVITE
== END ==
PROVIDERS: Visit Provider Internal Medicine
DX: M54.42 Lumbago with sciatica, left side (principal)
CPT/HCPCS: 72148; 76376; 78264; A9541

== ENCOUNTER → 2020-03-02 11:28 | Outpatient (CLI) | payer MEDICARE, BC, OTHER, SELFPAY ==
--- NOTE | 2020-03-02 | CT_ITS ---
PROCEDURE: CT CHEST WO CON CLINICAL INDICATION: POSITIONAL AIRWAY CLOSURE COMPARISON: CT ABDPELW/O CT ABD PELVIS W/O CONTRAST from 05/30/2014 TECHNIQUE: Axial images obtained with sagittal and coronal reformats. All CT scans at the facility use one or more dose reduction, viz: automated exposure control, ma/kV adjustment per patient size (including targeted exams where dose is matched to indication, i.e. head), or iterative reconstruction technique. FINDINGS: Patient feels like her areas being cut off when bending headboard and when raising arm above head. Axial images are obtained without contrast in neutral position the and then with patient flexing her neck and raising her arms. The airway has an unremarkable appearance throughout both positions with no evidence of airway closure in the neck or in the chest. Tracheobronchial tree has an unremarkable appearance. The incidental note is made of a few small mediastinal lymph nodes some which are calcified. Calcified granuloma is present in the lingula. There is some mild parenchymal scarring in the right upper lobe posteriorly along the major fissure. There is a 2 x 1.6 cm parenchymal opacity within the right middle lobe which may be due to an area of scarring or chronic volume loss. This was present on a older abdomen CT of 05/30/2014 is only slightly increased in size. Calcified granuloma is present within the lingula. No effusions are evident. There is mild wedge compression changes involving the T6 vertebral body with loss of height of approximately 20 percent with some cortical irregularity of the endplates. IMPRESSION: 1. No anatomical airway compromise evident 2. 2 cm parenchymal opacity within the right middle lobe which appears slightly more prominent from 05/30/2014 and may be due to an area of scarring. Consider six-month follow-up to confirm short term stability. 3. Old granulomatous disease. 4. Age indeterminate mild wedge compression changes of T6 Dictated by: Pedro Tyson MD 03/02/2020 12:49 Pedro Tyson MD in [facility] 03/02/2020 12:49
--- NOTE | 2020-03-02 | CT_ITS ---
PROCEDURE: CT SOFT TISSUE NECK WO CON CLINICAL HISTORY: POSITIONAL AIRWAY CLOSURE COMPARISON: No exams were available for comparison TECHNIQUE: Oral Contrast: None IV Contrast: None Axial images obtained with sagittal and coronal reformats. All CT scans at the facility use one or more dose reduction, viz: automated exposure control, ma/kV adjustment per patient size (including targeted exams where dose is matched to indication, i.e. head), or iterative reconstruction technique. FINDINGS: Exam is performed without contrast. Axial images are obtained without and with the patient recreate in her position that causes airway closure which was in a neck flexed position.. The nasopharynx has an unremarkable appearance. There is mild mucosal thickening of the sphenoid sinus posteriorly with a small air-fluid level in the right aspect of the sphenoid sinus. The uvula, glottic region, aryepiglottic folds, and epiglottis all have an unremarkable appearance. No significant airway narrowing is evident. No prevertebral soft tissue mass. The trachea has an unremarkable appearance. No adenopathy. Nonspecific calcifications are present in the right tonsillar area. No abscess. Incidental note is made of degenerative disc disease at C5-C6. No acute finding in the lung apices. IMPRESSION: 1. No airway closure evident. 2. Mild sphenoid sinus disease Dictated by: Pedro Tyson MD 03/02/2020 12:37 Pedro Tyson MD in [facility] 03/02/2020 12:37
== END ==
PROVIDERS: PCP Internal Medicine; Visit Provider Internal Medicine
DX: J98.8 Other specified respiratory disorders (principal)
CPT/HCPCS: 70490; 71250

== ENCOUNTER → 2020-04-12 15:10 | Outpatient (POV) | payer MEDICARE, BC, OTHER, SELFPAY | PROVIDERS: Visit Provider Dermatology | DX: Z00.00 Encounter for general adult medical examination without abnormal findings (principal) ==

== ENCOUNTER → 2020-04-25 11:07 | Outpatient (CLI) | payer MEDICARE, OTHER, SELFPAY | PROVIDERS: PCP Internal Medicine; Visit Provider Internal Medicine | DX: Z03.818 Encounter for observation for suspected exposure to other biological agents ruled out (principal); J06.9 Acute upper respiratory infection, unspecified; R05 Cough | CPT/HCPCS: U0003 ==

== ENCOUNTER → 2020-04-29 16:12 | Outpatient (CLI) | payer MEDICARE, OTHER, SELFPAY ==
--- NOTE | 2020-04-29 16:19 | XR_ITS ---
PROCEDURE: XR CHEST 2V CLINICAL HISTORY: COUGH,CONGESTION, POSTERIOR CHEST PAIN COMPARISON: CR CXR1 CHEST-PORTABLE from 05/30/[address] CHEST WO CON from 03/02/2020 FINDINGS: The cardiomediastinal silhouette and pulmonary vascularity are within normal limits. Increased density is present in the right lung base medially. Previous CT scan demonstrated a pericardial fat pad both right and left aspect of the pericardium which may in part be due to this increased density. However, the the opacification in the right lung base is slightly greater compared to the previous exam and may be related to superimposed infiltrate or enlarging nodule. There was a nodular density in this region on the previous CT scan. Calcified granuloma is present in the left lower lobe. No acute bony abnormalities. IMPRESSION: Bilateral pericardial fat pads with superimposed increased density in the right lung base medially suggestive superimposed infiltrate and/or enlarging nodule. Dictated by: Pedro Tyson MD 04/29/2020 16:38 Pedro Tyson MD in [facility] 04/29/2020 16:38
== END ==
PROVIDERS: PCP Internal Medicine; Visit Provider Internal Medicine
DX: R07.89 Other chest pain (principal); R05 Cough; R09.89 Other specified symptoms and signs involving the circulatory and respiratory systems
CPT/HCPCS: 71046

== ENCOUNTER → 2020-05-20 08:28 | Outpatient (CLI) | payer MEDICARE, OTHER, SELFPAY ==
--- NOTE | 2020-05-20 08:32 | MM_ITS ---
PROCEDURE: MM DIG SCREENING MAMM BI W/CAD Digital Breast Tomosynthesis Included CLINICAL INDICATION: SCREENING There is a history of breast cancer in the patient's maternal cousin. COMPARISON: MG DMSB DIG MAMM-SCREEN MARY W/CAD from 12/24/2016 [facility] MM Dig screening mamm BI w/CAD from 03/25/2018 MG MM DIG SCREENING MAMM BI W/CAD from 05/11/2019 TECHNIQUE: Standard CC and MLO images and 3D Tomosynthesis was obtained. R2 CAD reviewed. FINDINGS: Mild to moderate fibroglandular densities are seen in the central portions of both breasts. There is a benign-appearing calcification right breast. There is a mole marker left breast. There is no suspicious lesion and no suspicious microcalcifications. IMPRESSION: Fibrofatty parenchyma with no suspicious lesions seen BI-RAD Category: 2 Benign Finding(s) FOLLOW-UP: 1YR 1 Year Follow-up (A letter has been sent to the patient regarding results of the study.) Dictated by: Dr. Emmett Baker MD 05/24/2020 09:23 Dr. Emmett Baker MD in [place] 05/24/2020 09:23
== END ==
PROVIDERS: PCP Internal Medicine; Visit Provider Internal Medicine
DX: Z12.31 Encounter for screening mammogram for malignant neoplasm of breast (principal)
CPT/HCPCS: 77063; 77067

== ENCOUNTER → 2020-11-09 14:38 | Outpatient (CLI) | payer MEDICARE, OTHER, SELFPAY | PROVIDERS: PCP Internal Medicine; Visit Provider Internal Medicine | DX: G47.33 Obstructive sleep apnea (adult) (pediatric) (principal); G47.10 Hypersomnia, unspecified; G47.00 Insomnia, unspecified | CPT/HCPCS: G0399 ==

== ENCOUNTER 2020-12-12 10:10 | Outpatient (CLI) | payer MEDICARE, OTHER, SELFPAY ==
[2020-12-12 10:35] VITALS: BP 123/58; PULSE 73; RESP 18; TEMP 36.5; O2SAT 99
[2020-12-12 11:15] VITALS: BP 124/63; PULSE 73; RESP 20; TEMP 36.5; O2SAT 99
== END 2020-12-12 11:15 | disposition home or self-care (01) ==
LOC: INF 10:10
PROVIDERS: PCP Internal Medicine; Visit Provider Internal Medicine
DX: D50.9 Iron deficiency anemia, unspecified (principal); T45.4X5A Adverse effect of iron and its compounds, initial encounter
CPT/HCPCS: 96365; J1439

== ENCOUNTER 2020-12-19 09:55 | Outpatient (CLI) | payer MEDICARE, OTHER, SELFPAY ==
[2020-12-19 10:20] VITALS: BP 125/63; PULSE 73; RESP 18; TEMP 36.3
[2020-12-19 10:58] VITALS: BP 131/60; PULSE 69; RESP 18
== END 2020-12-19 10:58 | disposition home or self-care (01) ==
LOC: INF 09:55
PROVIDERS: Visit Provider Internal Medicine
DX: D64.9 Anemia, unspecified (principal); T45.4X5A Adverse effect of iron and its compounds, initial encounter
CPT/HCPCS: 96365; J1439

== ENCOUNTER → 2021-01-30 10:24 | Outpatient (CLI) | payer MEDICARE, OTHER, SELFPAY ==
[2021-01-30 11:53] LABS: Ferritin 250 ng/ml (11.1-264)
== END ==
PROVIDERS: Visit Provider Nurse Practitioner Family
DX: D64.9 Anemia, unspecified (principal); Z01.812 Encounter for preprocedural laboratory examination; Z20.822 Contact with and (suspected) exposure to COVID-19
CPT/HCPCS: 36415; 82728; U0003

== ENCOUNTER → 2021-02-01 20:04 | Outpatient (CLI) | payer MEDICARE, OTHER, SELFPAY | PROVIDERS: PCP Internal Medicine; Visit Provider Nurse Practitioner Family | DX: G47.33 Obstructive sleep apnea (adult) (pediatric) (principal); G47.61 Periodic limb movement disorder | CPT/HCPCS: 95811 ==

== ENCOUNTER → 2021-07-21 09:51 | Outpatient (CLI) | payer MEDICARE, OTHER, SELFPAY ==
--- NOTE | 2021-07-21 09:55 | MM_ITS ---
PROCEDURE INFORMATION: Exam: MG Bilateral Screening 3D Mammography Exam date and time: 07/21/2021 9:55 AM Age: 65 years old Clinical indication: Encounter for screening mammogram for malignant neoplasm of breast TECHNIQUE: Imaging protocol: Bilateral Screening tomosynthesis and 2D mammography including computer-aided detection (CAD) when performed. COMPARISON: 1. MG MM DIG SCREENING MAMM BI W/CAD 05/20/2020 8:30 AM 2. MG MM DIG SCREENING MAMM BI W/CAD 05/11/2019 9:00 AM 3. [facility] MM Dig screening mamm BI w/CAD 03/25/2018 8:50 AM FINDINGS: MAMMOGRAPHY: Breast composition: The breasts are heterogeneously dense, which may obscure small masses. Mass: No suspicious masses. Architectural distortion: No suspicious distortion. Calcifications: No suspicious calcifications. Asymmetric density: None. Skin thickening: None. Axillary adenopathy: None. IMPRESSION: No mammographic evidence of malignancy. Annual screening is recommended unless otherwise clinically indicated. ASSESSMENT: BI-RADS Category 1: Negative
== END ==
PROVIDERS: PCP Internal Medicine; Visit Provider Internal Medicine
DX: Z12.31 Encounter for screening mammogram for malignant neoplasm of breast (principal)
CPT/HCPCS: 77063; 77067

== ENCOUNTER → 2022-05-22 12:24 | Outpatient (CLI) | payer MEDICARE, OTHER, SELFPAY ==
[2022-05-22 14:08] LABS: Basophils # 0.1 K/mm3 (0-0.2); Basophils % 1.1 % (0.1-2.0); Eosinophils # 0.2 K/mm3 (0.0-0.4); Eosinophils % 2.6 % (0.1-12.0); Hematocrit 39.9 % (37.0-47.0); Hemoglobin 12.7 g/dL (12.2-16.2); Lymphocytes # 1.9 K/mm3 (0.7-4.5); Lymphocytes % 30.3 % (10-50); Mean Corpuscular HGB Conc 31.8 g/dL (31.8-35.4); Mean Corpuscular Hemoglobin 30.1 pg (27.0-31.2); Mean Corpuscular Volume 94.5 fl (81-99); Mean Platelet Volume 10.3 fl (7.4-10.4); Monocytes # 0.4 K/mm3 (0.1-1.0); Monocytes % 6.8 % (1.7-9.3); Neutrophils # 3.7 K/mm3 (1.8-7.8); Neutrophils % 59.1 % (37.0-80.0); Platelet Count 274 K/mm3 (142-424); Red Blood Count 4.23 M/mm3 (4.20-5.40); Red Cell Distribution Width 13.1 % (11.5-17.5); White Blood Count 6.2 K/mm3 (4.8-10.8)
[2022-05-22 14:42] LABS: Hemoglobin A1C 5.7 % (4.0-6.0)
[2022-05-22 15:00] LABS: 25-OH Vitamin D, Total 31.9 ng/mL (30-100)
[2022-05-22 15:59] LABS: Chloride 99 mmol/L (98-107); Potassium 4.4 mmoL/L (3.5-5.1); Sodium 138 mmol/L (136-145)
[2022-05-22 16:01] LABS: Alanine Aminotransferase 29 U/L (12-78); Anion Gap 10.4 mEq/L (5-15); Aspartate Amino Transferase 37 U/L (14-36); Blood Urea Nitrogen 15 mg/dl (7-17); Carbon Dioxide 33 mmol/L (22.0-30.0); Estimated Glomerular Filt Rate 72 ml/min (>60); GFR (African American) 87 ML/MIN (>60)
[2022-05-22 16:02] LABS: Albumin Level 4.3 g/dl (3.5-5.0); Albumin/Globulin Ratio 1.8 (1.1-1.8); Alkaline Phosphatase 94 U/L (38-126); Bilirubin,Total 0.5 mg/dl (0.2-1.3); Calcium 9.5 mg/dl (8.4-10.2); Chol/HDL Ratio 2.7 (1-3.5); Cholesterol 230 mg/dl (140-200); Globulin 2.4 g/dL (1.3-3.2); Glucose 83 mg/dl (74-100); HDL Cholesterol 86 mg/dl (40-60); Total Protein,Serum 6.7 g/dl (6.3-8.2); Triglycerides 211 mg/dl (30-150); VLDL Cholesterol 42 mg/dL (0-40)
[2022-05-22 16:13] LABS: Direct LDL Cholesterol 87.44 mg/dL (100-129)
== END ==
PROVIDERS: PCP Internal Medicine; Visit Provider Internal Medicine
DX: I10 Essential (primary) hypertension (principal); E78.5 Hyperlipidemia, unspecified; R53.83 Other fatigue; E55.9 Vitamin D deficiency, unspecified; R73.9 Hyperglycemia, unspecified; K31.84 Gastroparesis
CPT/HCPCS: 80053; 80061; 82306; 83036; 85025

== ENCOUNTER → 2022-07-30 10:59 | Outpatient (CLI) | payer MEDICARE, OTHER, SELFPAY ==
--- NOTE | 2022-07-30 11:04 | MM_ITS ---
PROCEDURE INFORMATION: Exam: MG Bilateral Screening 3D Mammography Exam date and time: 07/30/2022 10:53 AM Age: 66 years old Clinical indication: Screening examination. A maternal cousin had breast cancer. TECHNIQUE: Imaging protocol: Bilateral Screening tomosynthesis and 2D mammography including computer-aided detection (CAD) when performed. COMPARISON: 1. MG MM DIG SCREENING MAMM BI W/CAD 07/21/2021 9:53 AM 2. MG MM DIG SCREENING MAMM BI W/CAD 05/20/2020 8:30 AM 3. MG MM DIG SCREENING MAMM BI W/CAD 05/11/2019 9:00 AM 4. [facility] MM Dig screening mamm BI w/CAD 03/25/2018 8:50 AM FINDINGS: MAMMOGRAPHY: Breast composition: The breasts are heterogeneously dense, which may obscure small masses. Mass: None. Architectural distortion: None. Calcifications: No suspicious calcifications. Asymmetric density: None. Skin thickening: None. Axillary adenopathy: None. IMPRESSION: No mammographic evidence of malignancy. Annual screening is recommended unless otherwise clinically indicated. ASSESSMENT: BI-RADS Category 1: Negative
== END ==
PROVIDERS: PCP Internal Medicine; Visit Provider Internal Medicine
DX: Z12.31 Encounter for screening mammogram for malignant neoplasm of breast (principal)
CPT/HCPCS: 77063; 77067

== ENCOUNTER → 2022-11-23 08:38 | Outpatient (CLI) | payer MEDICARE, OTHER, SELFPAY ==
--- NOTE | 2022-11-23 08:59 | ECG_ITS ---
APPROVED REPORT Exam: Resting ECG HR:59 bpm ECG Measurements Heart Rate 59 AXES CO 151 P 61 QRSd 83 QRS 72 QT 403 T 29 QTc 403 Conclusion SINUS BRADYCARDIA LOW QRS VOLTAGE IN PRECORDIAL LEADS [QRS DEFLECTION < 1.0 mV IN CHEST LEADS] BORDERLINE ECG Electronically signed by : Alberto Rowley MD 11/26/2022 09:00:30
[2022-11-23 09:42] LABS: Basophils % 0.8 % (0.1-2.0); Eosinophils # 0.2 K/mm3 (0.0-0.4); Eosinophils % 2.8 % (0.1-12.0); Hemoglobin 13.6 g/dL (12.2-16.2); Lymphocytes # 1.9 K/mm3 (0.7-4.5); Lymphocytes % 34.1 % (10-50); Mean Corpuscular HGB Conc 33.1 g/dL (31.8-35.4); Mean Corpuscular Hemoglobin 29.9 pg (27.0-31.2); Mean Corpuscular Volume 90.4 fl (81-99); Mean Platelet Volume 8.8 fl (7.4-10.4); Monocytes # 0.4 K/mm3 (0.1-1.0); Neutrophils % 54.2 % (37.0-80.0); Platelet Count 267 K/mm3 (142-424); Red Blood Count 4.53 M/mm3 (4.20-5.40); Red Cell Distribution Width 13.1 % (11.5-17.5); White Blood Count 5.5 K/mm3 (4.8-10.8)
[2022-11-23 09:55] LABS: Chloride 98 mmol/L (98-107)
[2022-11-23 09:56] LABS: Potassium 4.3 mmoL/L (3.5-5.1); Sodium 137 mmol/L (136-145)
[2022-11-23 09:58] LABS: Alanine Aminotransferase 27 U/L (12-78); Alkaline Phosphatase 75 U/L (38-126); Anion Gap 9.3 mEq/L (5-15); Aspartate Amino Transferase 40 U/L (14-36); Bilirubin,Total 0.4 mg/dl (0.2-1.3); Blood Urea Nitrogen 13 mg/dl (7-17); Carbon Dioxide 34 mmol/L (22.0-30.0); Cholesterol 209 mg/dl (140-200); Estimated Glomerular Filt Rate 62 ml/min (>60); GFR (African American) 75 ML/MIN (>60); Triglycerides 157 mg/dl (30-150); VLDL Cholesterol 31 mg/dL (0-40)
[2022-11-23 09:59] LABS: Albumin Level 4.3 g/dl (3.5-5.0); Albumin/Globulin Ratio 1.6 (1.1-1.8); Calcium 9.3 mg/dl (8.4-10.2); Chol/HDL Ratio 1.9 (1-3.5); Globulin 2.7 g/dL (1.3-3.2); Glucose 95 mg/dl (74-100); HDL Cholesterol 108 mg/dl (40-60)
[2022-11-23 10:10] LABS: Direct LDL Cholesterol 67.65 mg/dL (100-129)
[2022-11-23 10:30] LABS: Thyroid Stimulating Hormone 1.53 uIU/mL (0.465-4.68)
[2022-11-23 10:41] LABS: 25-OH Vitamin D, Total 28.9 ng/mL (30-100)
[2022-11-23 11:28] LABS: Vitamin B12 411 pg/mL (239-931)
== END ==
PROVIDERS: PCP Internal Medicine; Visit Provider Internal Medicine
DX: R07.9 Chest pain, unspecified (principal); I10 Essential (primary) hypertension; E55.9 Vitamin D deficiency, unspecified; R53.83 Other fatigue; E78.5 Hyperlipidemia, unspecified; M79.7 Fibromyalgia; M15.0 Primary generalized (osteo)arthritis; M31.6 Other giant cell arteritis
CPT/HCPCS: 36415; 80053; 80061; 82306; 82607; 84443; 85025; 93005

== ENCOUNTER 2022-12-01 09:39 | Emergency (ER) | payer MEDICARE, OTHER, SELFPAY ==
[2022-12-01 09:50] VITALS: BP 121/53; PULSE 69; RESP 20; TEMP 36.9; O2SAT 98; BMI 30.2
[2022-12-01 10:13] VITALS: BP 121/53; PULSE 69; RESP 20; TEMP 36.9; O2SAT 98
--- NOTE | 2022-12-01 10:15 | EXP.UTC ---
Discharge Plan Disposition Patient Disposition: Home, Self-Care Condition: Good Prescriptions Prescriptions: New amoxicillin [amoxicillin] 500 mg tablet 500 mg PO BID 10 Days Qty: 20 0RF fluticasone propionate [fluticasone propionate] 50 mcg/actuation spray,suspension 1 spray intranasal DAILY Qty: 9.9 0RF No Action duloxetine 60 mg capsule,delayed release(DR/EC) 60 mg PO DAILY ergocalciferol (vitamin D2) 1,250 mcg (50,000 unit) capsule 1,250 mcg PO WEEKLY diclofenac sodium [Voltaren Arthritis Pain] 1 % gel 2 g topical QID Rx Instructions: apply to single elbow, wrist or hand; for hand includes palm/fingers/back of hand aspirin 81 MG tablet,delayed release (DR/EC) 81 mg PO PM gabapentin 300 MG capsule 300 mg PO DAILY omeprazole 20 MG tablet,delayed release (DR/EC) 20 mg PO DAILY bisoprolol-hydrochlorothiazide 5-6.25 mg tablet 1 tab PO .COMPLEX Rx Instructions: 1 tab orally twice a week; pravastatin 40 mg tablet 40 mg PO DIRECTED Rx Instructions: 4 x weekly Referrals Follow up/Referrals: Alberto Rowley MD [Primary Care Provider] - See instructions Activity Restrictions/Add. Instructions Additional Instructions/Restrictions: Start antibiotic patient to take as ordered for a full length of time even if you feel better. Sinus infections do not get better overnight. It may take 2-3 days to notice much improvement so be sure to use conservative measures as discussed for symptoms. Flonase 1 spray each nostril daily to help with nasal congestion, sinus and ear pressure/information Increase fluids Humidifier/vaporizer as needed Tylenol and ibuprofen as needed for fever or pain. If symptoms do not improve or get worse return or be seen in the ER Follow-up with primary care this week Clinical Impressions Clinical Impression: Sinusitis Instructions Patient Instructions: DI for Sinusitis Discharge ED Provider: Scott ([facility] [place] HPI General Stated complaint: Headache, congestion, sore throat Mode of Arrival: Ambulatory Source of Information: Patient Limitations: No Limitations Time Seen by Provider: 12/01/22 10:15 Description of Symptoms (Recalled from Triage Doc. by RN): PATIENT C/O SINUS PRESSURE, COUGH, HEADACHE AND BILATERAL EAR PAIN X 3 DAYS HEENT Symptoms (Recalled from RN notes): Yes Resp Symptoms (Recalled from RN notes): Yes Skin Symptoms (Recalled from RN notes): No MS Symptoms (Recalled from RN notes): No Functional Status (Recalled from RN notes): WNL History of Present Illness Provider Complaint: 67 yr old female presents for sinus congestion, sinus pressure, cough, bird and kindra ear pressure for 3 days and now drainage turning yellow/green and not improving Related Data Home Medications Medication Instructions Recorded Confirmed aspirin 81 mg tablet,delayed 81 mg PO PM Blood thinner 01/09/18 11/08/22 release gabapentin 300 mg capsule 300 mg PO DAILY nerve pain 12/12/20 11/08/22 omeprazole 20 mg tablet,delayed 20 mg PO DAILY GERD 12/12/20 11/08/22 release duloxetine 60 mg capsule,delayed 60 mg PO DAILY 04/13/21 11/08/22 release bisoprolol 5 1 tab PO .COMPLEX blood pressure 10/10/22 11/08/22 mg-hydrochlorothiazide 6.25 mg tablet pravastatin 40 mg tablet 40 mg PO DIRECTED Cholesterol 10/10/22 11/08/22 diclofenac sodium 1 % topical gel 2 g topical QID 11/08/22 11/08/22 (Voltaren Arthritis Pain) ergocalciferol (vitamin D2) 1,250 1,250 mcg PO WEEKLY 11/08/22 11/08/22 mcg (50,000 unit) capsule Previous Rx's Medication Instructions Recorded amoxicillin 500 mg tablet 500 mg PO BID 10 days #20 tabs 12/01/22 fluticasone propionate 50 1 spray intranasal DAILY #9.9 mL 12/01/22 mcg/actuation nasal spray,suspension Allergies Allergy/AdvReac Type Severity Reaction Status Date / Time No Known Allergies Allergy Verified 11/08/22 10:35 Worker's Comp Is this a Worker's Comp yobany
== END 2022-12-01 10:38 | disposition home or self-care (01) ==
PROVIDERS: Emergency Provider Nurse Practitioner Family; PCP Internal Medicine
DX: J01.90 Acute sinusitis, unspecified (principal); H66.93 Otitis media, unspecified, bilateral
CPT/HCPCS: 96372; 99204; 99212; G0463

== ENCOUNTER 2022-12-08 15:40 | Emergency (ER) | payer MEDICARE, OTHER, SELFPAY ==
[2022-12-08] VITALS (7 sets, daily range): BP systolic 101–118; BP diastolic 45–65; PULSE 70–80; RESP 14–18; TEMP 36.6; O2SAT 94–99; BMI 31.4
--- NOTE | 2022-12-08 16:09 | HMH.EDGENADL ---
Discharge Plan Disposition Patient Disposition: Home, Self-Care Condition: Fair Prescriptions Prescriptions: New ondansetron 4 mg tablet,disintegrating 4 mg PO Q6H PRN (Reason: nausea and vomiting) Qty: 10 0RF No Action duloxetine 60 mg capsule,delayed release(DR/EC) 60 mg PO DAILY ergocalciferol (vitamin D2) 1,250 mcg (50,000 unit) capsule 1,250 mcg PO WEEKLY diclofenac sodium [Voltaren Arthritis Pain] 1 % gel 2 g topical QID Rx Instructions: apply to single elbow, wrist or hand; for hand includes palm/fingers/back of hand aspirin 81 MG tablet,delayed release (DR/EC) 81 mg PO PM gabapentin 300 MG capsule 300 mg PO DAILY omeprazole 20 MG tablet,delayed release (DR/EC) 20 mg PO DAILY bisoprolol-hydrochlorothiazide 5-6.25 mg tablet 1 tab PO .COMPLEX Rx Instructions: 1 tab orally twice a week; pravastatin 40 mg tablet 40 mg PO DIRECTED Rx Instructions: 4 x weekly amoxicillin [amoxicillin] 500 mg tablet 500 mg PO BID 10 Days Qty: 20 0RF fluticasone propionate [fluticasone propionate] 50 mcg/actuation spray,suspension 1 spray intranasal DAILY Qty: 9.9 0RF Referrals Follow up/Referrals: Alberto Rowley MD [Primary Care Provider] - See instructions Activity Restrictions/Add. Instructions Additional Instructions/Restrictions: You have been evaluated for nausea, vomiting, diarrhea. Please follow bland diet. Stay hydrated. Take Zofran as needed for nausea. Follow-up with your primary care doctor in 1 to 2 days for symptom recheck. Return to the emergency department at once for any new or worsening symptoms, abdominal pain, chest pain, headache, shortness of breath, any other concerns. Clinical Impressions Clinical Impression: Nausea, vomiting, and diarrhea, Dehydration Instructions Patient Instructions: DI for Nausea -- Adult, [place] Diet Discharge ED Provider: Natasha Mcdaniel [facility] General Chief complaint: Nausea/Vomiting/Diarrhea Stated complaint: dizzy,V/D/N Time Seen by Provider: 12/08/22 15:56 Mode of Arrival: Wheelchair Source of Information: Patient Limitations: No Limitations Description of Symptoms (Recalled from ER Triage Doc. by RN): Presents to ED with complaints of N/V/D that started at 1000. Patient further reports she had pain in her back as well as between her shoulder blades. OTC omeprazole 20mg and aspirin 81mg [employer]. History of Present Illness HPI narrative: 67-year-old female presenting to the emergency department with nausea, vomiting, diarrhea. Symptoms started around 10 AM, 6 hours prior to arrival. She felt somewhat nauseous, queasy after breakfast. She has had multiple episodes of emesis. Also having diarrhea. She denies any particular abdominal pain. No fevers, chills, cough, shortness of breath. No headache, chest pain, shortness of breath. No medications prior to arrival. She felt well yesterday, spent the day with her granddaughter. Denies recent illness or sick exposure. No one else in the house is sick. Related Data Home Medications Medication Instructions Recorded Confirmed aspirin 81 mg tablet,delayed 81 mg PO PM Blood thinner 01/09/18 11/08/22 release gabapentin 300 mg capsule 300 mg PO DAILY nerve pain 12/12/20 11/08/22 omeprazole 20 mg tablet,delayed 20 mg PO DAILY GERD 12/12/20 11/08/22 release duloxetine 60 mg capsule,delayed 60 mg PO DAILY 04/13/21 11/08/22 release bisoprolol 5 1 tab PO .COMPLEX blood pressure 10/10/22 11/08/22 mg-hydrochlorothiazide 6.25 mg tablet pravastatin 40 mg tablet 40 mg PO DIRECTED Cholesterol 10/10/22 11/08/22 diclofenac sodium 1 % topical gel 2 g topical QID 11/08/22 11/08/22 (Voltaren Arthritis Pain) ergocalciferol (vitamin D2) 1,250 1,250 mcg PO WEEKLY 11/08/22 11/08/22 mcg (50,000 unit) capsule Previous Rx's Medication Instructions Recorded amoxicillin 500 mg tablet 500 mg PO BID 10 days #20 tabs 12/01/22
[2022-12-08 16:19] LABS: Basophils % 0.3 % (0.1-2.0); Chloride 99 mmol/L (98-107); Eosinophils # 0.2 K/mm3 (0.0-0.4); Eosinophils % 1.7 % (0.1-12.0); Hematocrit 41.6 % (37.0-47.0); Hemoglobin 13.7 g/dL (12.2-16.2); Lymphocytes # 0.7 K/mm3 (0.7-4.5); Lymphocytes % 6.2 % (10-50); Mean Corpuscular Hemoglobin 29.3 pg (27.0-31.2); Mean Corpuscular Volume 88.7 fl (81-99); Mean Platelet Volume 8.6 fl (7.4-10.4); Monocytes # 0.3 K/mm3 (0.1-1.0); Monocytes % 2.8 % (1.7-9.3); Neutrophils # 10.7 K/mm3 (1.8-7.8); Neutrophils % 89.1 % (37.0-80.0); Platelet Count 263 K/mm3 (142-424); Potassium 3.7 mmoL/L (3.5-5.1); Red Blood Count 4.69 M/mm3 (4.20-5.40); Red Cell Distribution Width 13.1 % (11.5-17.5); Sodium 138 mmol/L (136-145)
[2022-12-08 16:21] LABS: Alanine Aminotransferase 42 U/L (12-78); Alkaline Phosphatase 97 U/L (38-126); Aspartate Amino Transferase 53 U/L (14-36); Bilirubin,Total 0.7 mg/dl (0.2-1.3); Blood Urea Nitrogen 18 mg/dl (7-17); Creatinine Clearance Estimated 64 mL/min (50-200); Estimated Glomerular Filt Rate 71 ml/min (>60); GFR (African American) 86 ML/MIN (>60); MANUAL DIFFERENTIAL MANUAL DIFFERENTIAL (MANUAL DIFF)
[2022-12-08 16:22] LABS: Albumin Level 4.4 g/dl (3.5-5.0); Albumin/Globulin Ratio 1.4 (1.1-1.8); Calcium 8.8 mg/dl (8.4-10.2); Globulin 3.1 g/dL (1.3-3.2); Glucose 123 mg/dl (74-100); Lipase 131 U/L (23-300); Total Protein,Serum 7.5 g/dl (6.3-8.2)
[2022-12-08 16:49] LABS: Anion Gap 12.7 mEq/L (5-15); Carbon Dioxide 30 mmol/L (22.0-30.0)
[2022-12-08 16:58] LABS: Lymphocytes % 7 % (10-50); Monocytes % 1 % (2-9); Neutrophils % 92 % (42-76); Total Cells Counted 100
[2022-12-08 16:59] LABS: Platelet Estimate Normal; RBC Morphology Normal
--- NOTE | 2022-12-08 17:05 | PC.NURSE ---
Ambulated to bathroom in no apparent distress
--- NOTE | 2022-12-08 17:16 | PC.NURSE ---
Attempted to urinate; unsuccessful. Pt requesting ice chips. PO okay per MD. Oral fluids provided. Warm blankets provided. Pt reports improvement.
--- NOTE | 2022-12-08 17:55 | PC.NURSE ---
Rounded on patient; tolerated some PO
== END 2022-12-08 18:34 | disposition home or self-care (01) ==
PROVIDERS: Emergency Provider Emergency Medicine; PCP Internal Medicine
DX: E86.0 Dehydration (principal); R11.2 Nausea with vomiting, unspecified; R19.7 Diarrhea, unspecified; R42 Dizziness and giddiness; M25.512 Pain in left shoulder
CPT/HCPCS: 80053; 83690; 85007; 85025; J2405

== ENCOUNTER 2022-12-08 21:45 | Observation (INO) | payer MEDICARE, OTHER, SELFPAY ==
[2022-12-08 21:54] VITALS: BP 133/52; PULSE 73; RESP 18; O2SAT 96
[2022-12-08 22:00] VITALS: BP 133/52; PULSE 73; RESP 20; TEMP 36.9; O2SAT 97; BMI 31.4
--- NOTE | 2022-12-08 22:10 | CT_ITS ---
PROCEDURE INFORMATION: Exam: CT Abdomen And Pelvis With Contrast Exam date and time: 12/08/22 11:01 PM Age: 67 years old Clinical indication: Nausea and vomiting; Additional info: N/v/d TECHNIQUE: Imaging protocol: Computed tomography of the abdomen and pelvis with contrast. Radiation optimization: All CT scans at this facility use at least one of these dose optimization techniques: automated exposure control; mA and/or kV adjustment per patient size (includes targeted exams where dose is matched to clinical indication); or iterative reconstruction. Contrast material: ISOVUE; Contrast volume: 75 ml; Contrast route: IV; REPORTING DATA: Count of CT and Cardiac NM exams in prior 12 months: This patient has received 0 known CTs and 0 known cardiac nuclear medicine studies in the 12 months prior to the current study. COMPARISON: [facility] CT abdomen pelvis wo con 01/09/18 03:15 AM FINDINGS: Tubes, catheters and devices: None noted. Lungs: Lung bases appear clear. Heart: No significant coronary calcifications. No cardiomegaly. No significant pericardial effusion. Liver: Normal. No mass. Gallbladder and bile ducts: Cholecystectomy. No ductal dilation. Pancreas: Normal. No ductal dilation. Spleen: Normal. No splenomegaly. Adrenal glands: Normal. No mass. Kidneys and ureters: Normal. No hydronephrosis. Stomach and bowel: Pancolitis. No obstruction. No mucosal thickening. Appendix: Retrocecal appendix is well visualized No evidence of appendicitis. Intraperitoneal space: Unremarkable. No free air. No significant fluid collection. Retroperitoneal space: No significant retroperitoneal inflammatory changes are noted. Vasculature: Unremarkable. No abdominal aortic aneurysm. Lymph nodes: Unremarkable. No enlarged lymph nodes. Urinary bladder: Unremarkable as visualized. Reproductive: Hysterectomy. Bones/joints: Unremarkable. No acute fracture. Soft tissues: Unremarkable. IMPRESSION: 1. No CT evidence of bowel obstruction. 2. No CT evidence of appendicitis. 3. Cholecystectomy. 4. Hysterectomy. 5. Pancolitis.
[2022-12-08 22:17] LABS: Basophils % 0.3 % (0.1-2.0); Eosinophils % 0.4 % (0.1-12.0); Hematocrit 39.8 % (37.0-47.0); Hemoglobin 13.4 g/dL (12.2-16.2); Lymphocytes # 0.6 K/mm3 (0.7-4.5); Mean Corpuscular HGB Conc 33.7 g/dL (31.8-35.4); Mean Corpuscular Hemoglobin 30.2 pg (27.0-31.2); Mean Corpuscular Volume 89.7 fl (81-99); Mean Platelet Volume 8.8 fl (7.4-10.4); Monocytes # 0.3 K/mm3 (0.1-1.0); Monocytes % 3.2 % (1.7-9.3); Neutrophils % 89.1 % (37.0-80.0); Platelet Count 256 K/mm3 (142-424); Red Blood Count 4.43 M/mm3 (4.20-5.40); Red Cell Distribution Width 13.2 % (11.5-17.5)
[2022-12-08 22:18] LABS: Chloride 99 mmol/L (98-107); Potassium 3.5 mmoL/L (3.5-5.1); Sodium 138 mmol/L (136-145)
[2022-12-08 22:21] LABS: Alanine Aminotransferase 38 U/L (12-78); Alkaline Phosphatase 86 U/L (38-126); Amylase 62 U/L (30-110); Anion Gap 13.5 mEq/L (5-15); Aspartate Amino Transferase 44 U/L (14-36); Bilirubin,Total 0.7 mg/dl (0.2-1.3); Blood Urea Nitrogen 17 mg/dl (7-17); Calcium 8.4 mg/dl (8.4-10.2); Carbon Dioxide 29 mmol/L (22.0-30.0); Creatinine Clearance Estimated 64 mL/min (50-200); Estimated Glomerular Filt Rate 83 ml/min (>60); GFR (African American) 101 ML/MIN (>60); Glucose 121 mg/dl (74-100); Lipase 70 U/L (23-300)
[2022-12-08 22:22] LABS: Albumin Level 4.2 g/dl (3.5-5.0); Albumin/Globulin Ratio 1.4 (1.1-1.8); Total Protein,Serum 7.2 g/dl (6.3-8.2)
[2022-12-08 22:27] LABS: Coronavirus 19, PCR Not Detected (NotDetected); Influenza A, PCR Not Detected (NotDetected); Influenza B, PCR Not Detected (NotDetected)
--- NOTE | 2022-12-08 22:30 | ECG_ITS ---
APPROVED REPORT Exam: Resting ECG HR:72 bpm ECG Measurements Heart Rate 72 AXES KS 134 P 44 QRSd 83 QRS 49 QT 394 T 39 QTc 417 Conclusion SINUS RHYTHM LOW QRS VOLTAGE IN PRECORDIAL LEADS [QRS DEFLECTION < 1.0 mV IN CHEST LEADS] BORDERLINE ECG UNCONFIRMED REPORT Electronically signed by : Valente Puente MD 12/09/2022 13:51:59
[2022-12-08 22:31] VITALS: BP 119/55; PULSE 71; RESP 20; O2SAT 100
--- NOTE | 2022-12-08 22:56 | HMH.EDNVD ---
Discharge Plan Disposition Patient Disposition: Admitted Condition: Fair Chief Complaint: Nausea/Vomiting/Diarrhea Clinical Impressions Clinical Impression: Colitis Discharge ED Provider: Richard (ED)Braulio Nausea/Vomiting/Diarrhea HPI General Chief complaint: Nausea/Vomiting/Diarrhea Stated complaint: weakness,vomitting,diarrhea Time Seen by Provider: 12/08/22 22:00 Mode of Arrival: Wheelchair Source of Information: Patient, Spouse and Medical Record Limitations: No Limitations Description of Symptoms (Recalled from ER Triage Doc. by RN): pt c/o N/V/D, chills and a CRANDALL. pt states she took zofran and immodium around 1930 without any relief. pt states she was seen here in the ED this am and was told to return if she wasn't feeling any better. symptoms ongoing since this am. History of Present Illness HPI Narrative: pt with dec po intake and crampy abd pain assoc with nonbldy diarrhea - was seen in the ed earlier and trial of home meds but continued to have sx and returned to the ed - no known exposure but has had rotovirus in past- no fever and no known exposure MD complaint: nausea, vomiting and diarrhea Onset (ago): hour(s) Description of Vomiting: bilious Description of Diarrhea: water Associated Abdominal Pain: Yes Location of pain: diffuse Severity: moderate Quality: cramping Associated symptoms: denies other symptoms Related Data Home Medications Medication Instructions Recorded Confirmed aspirin 81 mg tablet,delayed 81 mg PO PM Blood thinner 01/09/18 12/08/22 release gabapentin 300 mg capsule 300 mg PO DAILY nerve pain 12/12/20 12/08/22 omeprazole 20 mg tablet,delayed 20 mg PO DAILY GERD 12/12/20 12/08/22 release duloxetine 60 mg capsule,delayed 60 mg PO DAILY Depression 04/13/21 12/08/22 release bisoprolol 5 1 tab PO .COMPLEX blood pressure 10/10/22 12/08/22 mg-hydrochlorothiazide 6.25 mg tablet pravastatin 40 mg tablet 40 mg PO DIRECTED Cholesterol 10/10/22 12/08/22 diclofenac sodium 1 % topical gel 2 g topical QID Pain 11/08/22 12/08/22 (Voltaren Arthritis Pain) ergocalciferol (vitamin D2) 1,250 1,250 mcg PO WEEKLY Supplement 05/18/23 06/17/23 mcg (50,000 unit) capsule amoxicillin 500 mg tablet 500 mg PO BID Sinus infection 12/08/22 12/08/22 fluticasone propionate 50 1 spray intranasal DAILY 12/08/22 12/08/22 mcg/actuation nasal Congestion/chest congesti spray,suspension Previous Rx's Medication Instructions Recorded ondansetron 4 mg disintegrating 4 mg PO Q6H PRN nausea and 12/08/22 tablet vomiting #10 tabs Allergies Allergy/AdvReac Type Severity Reaction Status Date / Time No Known Allergies Allergy Verified 12/08/22 22:06 [facility] Disclaimer: The information contained in this section may have been updated after the patient was seen, as this information can be updated by other users. Family History , [employer] INSTRUCTOR) Diabetes Coronary artery disease Heart attack Stroke Social History Smoking Status: Never smoker alcohol intake: never substance use type: denies use current occupational status: retired Travel in the last 8 weeks: None household members: spouse housing: house current occupational exposures/hazards: No caffeine: Yes ROS Obtained: Yes All systems reviewed & no additional complaints except as documented Physical Exam General General appearance: alert Head Head exam: normocephalic Eye Eye exam: Present PERRL and EOMI ENT ENT exam: Present mucous membranes moist Neck Neck exam: Present trachea midline Respiratory Respiratory exam: Present normal lung sounds bilaterally; Absent respiratory distress Cardiovascular Cardiovascular exam: Present regular rate and systolic murmur Abdominal Exam Abdominal exam: Present soft and tenderness; Absent guarding, rebound or rigidity Abdominal tenderness: Present diffuse and mil
[2022-12-08 23:30] VITALS: BP 120/47; PULSE 73; O2SAT 97
--- NOTE | 2022-12-08 23:40 | PC.NURSE ---
paging out to rad that read ct.
[2022-12-09] VITALS (13 sets, daily range): BP systolic 95–129; BP diastolic 38–61; PULSE 68–77; RESP 16–20; TEMP 36.6–37.1; O2SAT 92–98; BMI 31.8
[2022-12-09 01:15] LABS: Microscopic, Urine URINE MICROSCOPIC (MICROSCOPIC)
[2022-12-09 01:20] LABS: Appearance,Urine CLEAR (Clear); Bilirubin,Urine Negative (Negative); Blood, Urine TRACE-I (Negative); Color,Urine YELLOW (Yellow); Glucose,Urine (UA) Negative (Negative); Ketones,Urine 1+ (Negative); Leukocyte Esterase,Urine Negative (Negative); Nitrate,Urine Negative (Negative); PH,Urine 7.5 (5.0-8.5); Protein,Urine Negative (Negative)
[2022-12-09 01:53] LABS: Bacteria,Urine Trace /lpf; WBC,Urine Occasional #/hpf (0-3)
--- NOTE | 2022-12-09 04:44 | EXP.HP ---
History of Present Illness *Admission Date: 12/09/22 *Reason for visit:: nausea vomit and diarrhea *History of present illness: This is a 67-year-old female with past medical history of hypertension and hyperlipidemia, and coronary artery disease who came to the ER complaining of N/V/D, chills and a CRANDALL, started at 10 AM this morning. pt states she took zofran and immodium around 1930 without any relief. pt states she was seen here in the ED this am and was told to return if she wasn't feeling any better. symptoms ongoing since this am. Patient been having nonbloody diarrhea, nausea and vomiting as well as abdominal cramping. Patient usually take aspirin at home with ibuprofen. She denied any fever, was taking amoxicillin for sinusitis. Patient was not tolerating p.o. and decided to come back. Admitted for further management and observation. [facility] Disclaimer: The information contained in this section may have been updated after the patient was seen, as this information can be updated by other users. Medical History (Updated 12/09/22 @ 04:57 by Shawn Poe APRN) History of heart attack Hyperlipidemia Hypertension Sleep apnea Surgical History (Updated 12/09/22 @ 04:30 by Alanna Pastrana RN) History of cholecystectomy History of hysterectomy History of rhinoplasty Tubal ligation status Family History , JOSE) Diabetes Coronary artery disease Heart attack Stroke Social History (Updated 12/09/22 @ 04:30 by Alanna Pastrana RN) Smoking Status: Never smoker alcohol intake: never substance use type: denies use current occupational status: retired Travel in the last 8 weeks: None household members: spouse housing: house current occupational exposures/hazards: No caffeine: Yes Review of Systems Review of Systems Review of systems:: pertinent systems reviewed and negative unless documented below Meds Home Medications and Allergies Home Medications Medication Instructions Recorded Confirmed Type aspirin 81 mg tablet,delayed 81 mg PO PM Blood thinner 01/09/18 12/08/22 History release gabapentin 300 mg capsule 300 mg PO DAILY nerve pain 12/12/20 12/08/22 History omeprazole 20 mg tablet,delayed 20 mg PO DAILY GERD 12/12/20 12/08/22 History release duloxetine 60 mg capsule,delayed 60 mg PO DAILY Depression 04/13/21 12/08/22 History release bisoprolol 5 1 tab PO MOWEFR blood pressure 10/10/22 12/09/22 History mg-hydrochlorothiazide 6.25 mg tablet pravastatin 40 mg tablet 40 mg PO HS Cholesterol 10/10/22 12/09/22 History diclofenac sodium 1 % topical gel 2 g topical QID Pain 11/08/22 12/08/22 History (Voltaren Arthritis Pain) ergocalciferol (vitamin D2) 1,250 1,250 mcg PO WEEKLY Supplement 11/08/22 12/08/22 History mcg (50,000 unit) capsule amoxicillin 500 mg tablet 500 mg PO BID Sinus infection 12/08/22 12/08/22 History fluticasone propionate 50 1 spray intranasal DAILY 12/08/22 12/08/22 History mcg/actuation nasal Congestion/chest congesti spray,suspension ondansetron 4 mg disintegrating 4 mg PO Q6HP PRN NAUSEA/VOMITING 12/09/22 12/09/22 History tablet New Prescriptions to Start Prescriptions: Allergies Allergy/AdvReac Type Severity Reaction Status Date / Time No Known Allergies Allergy Verified 12/08/22 22:06 Exam Data for Last 24 hours Vital signs and Labs for Last 24 Hours: Temp Pulse Resp BP Pulse Ox 98 F 72 16 107/58 L 97 12/09/22 04:07 12/09/22 04:07 12/09/22 04:07 12/09/22 04:07 12/09/22 03:01 Laboratory Results - last 24 hr 12/08/22 21:59: SARS-CoV-2 (PCR) Not detected, Influenza A Untype (PCR) Not detected, Influenza Type B (PCR) Not detected 12/08/22 22:00: WBC 9.0, RBC 4.43, Hgb 13.4, Hct 39.8, MCV 89.7, MCH 30.2, MCHC 33.7, RDW 13.2, Plt Count 256, MPV 8.8, Neut % (Auto) 89.1 H, Lymph % (Auto) 7.0 L, [place] % (Auto) 3.2, Eos % (Auto) 0.4, Baso % (Auto)
--- NOTE | 2022-12-09 05:04 | PC.NURSE ---
Patient just arrived to the floor. After getting her situated in the room has had no issues. Completed medication list. RN educated patient on bringing her home medication in for use. Patient is not in pain and is not nausea at this time.
[2022-12-09 08:43] LABS: C-Reactive Protein 31.7 mg/L (0-4)
[2022-12-09 09:03] LABS: Erythrocyte Sedimentation Rate 22 mm/hr (0-30)
--- NOTE | 2022-12-09 10:50 | EXP.PN ---
Subjective *Date: 12/09/22 *Time: 10:55 Interval history: Patient states that abdominal discomfort much better versus admission assessment. Describes abdominal discomfort yesterday as 6/10, starting in a.m., diffuse, burning sensation. Also states the diarrhea has decreased since yesterday. Denies fevers, chills overnight. Exam Data for Last 24 hours Vital signs and Labs for Last 24 Hours: Temp Pulse Resp BP Pulse Ox 98.0 F 77 17 116/54 L 93 L 12/09/22 07:44 12/09/22 07:44 12/09/22 07:44 12/09/22 07:44 12/09/22 07:44 Laboratory Results - last 24 hr 12/08/22 21:59: SARS-CoV-2 (PCR) Not detected, Influenza A Untype (PCR) Not detected, Influenza Type B (PCR) Not detected 12/08/22 22:00: WBC 9.0, RBC 4.43, Hgb 13.4, Hct 39.8, MCV 89.7, MCH 30.2, MCHC 33.7, RDW 13.2, Plt Count 256, MPV 8.8, Neut % (Auto) 89.1 H, Lymph % (Auto) 7.0 L, [place] % (Auto) 3.2, Eos % (Auto) 0.4, Baso % (Auto) 0.3, Neut # (Auto) 8.0 H, Lymph # (Auto) 0.6 L, [place] # (Auto) 0.3, Eos # (Auto) 0.0, Baso # (Auto) 0.0 12/08/22 22:00: Sodium 138, Potassium 3.5, Chloride 99, Carbon Dioxide 29, Anion Gap 13.5, BUN 17, Creatinine 0.70, Estimated Creat Clear 64, Estimated GFR 83, Est GFR ( Amer) 101, Glucose 121 H, Calcium 8.4, Total Bilirubin 0.7, AST 44 H, ALT 38, Alkaline Phosphatase 86, Total Protein 7.2, Albumin 4.2, Globulin 3.0, Albumin/Globulin Ratio 1.4, Amylase 62, Lipase 70 12/08/22 23:44: Urine Color Yellow, Urine Appearance Clear, Urine pH 7.5, Ur Specific [place] 1.010, Urine Protein Negative, Urine Glucose (UA) Negative, Urine Ketones 1+, Urine Blood Trace-i, Urine Nitrate Negative, Urine Bilirubin Negative, Urine Urobilinogen 1.0, Ur Leukocyte Esterase Negative, Urine RBC 3-5, Urine WBC Occasional, Ur Squamous Epith Cells 3-5, Urine Bacteria Trace 12/09/22 07:20: ESR 22 12/09/22 07:20: C-Reactive Protein 31.7 H I & O for Last 24 hours: Intake & Output 12/06/22 12/07/22 12/08/22 12/09/22 23:59 23:59 23:59 23:59 Intake Total 1200 / 1200 Balance 1200 / 1200 Weight 75.296 kg 76.402 kg Constitutional Constitutional: no acute distress, average body habitus and cooperative *Routine HEENT Exam Head: Present normocephalic Eye: Present EOMI ENT: Present mucous membranes moist *Routine Neck Exam Neck: Present supple and full ROM *Routine Respiratory Exam Respiratory: Present CTA bilaterally; Absent accessory muscle use *Routine Cardiovascular Exam Cardiovascular: Present RRR, Normal S1 and Normal S2 *Routine Abdominal Exam Abdominal: Present soft and normoactive bowel sounds; Absent rebound or guarding *Routine Extremities Exam Extremities: Present full ROM *Routine Skin Exam Skin: Present intact and normal turgor *Routine Neurological Exam Neurological: Present alert and oriented X3 Routine Psychiatric Exam Psychiatric: Present normal affect and cooperative; Absent suicidal ideation or homicidal ideation Assessment and Plan *Assessment and plan (1) Hyperlipidemia: Status: Acute Qualifiers: Hyperlipidemia type: unspecified Qualified Code(s): E78.5 - Hyperlipidemia, unspecified Category: Medical Code(s): E78.5 - Hyperlipidemia, unspecified (2) Hypertension: Status: Acute Qualifiers: Hypertension type: primary hypertension Qualified Code(s): I10 - Essential (primary) hypertension Category: Medical Code(s): I10 - Essential (primary) hypertension (3) NAYA on CPAP: Problem Comment: Severe NAYA with nocturnal hypoxemia, compliance has significantly improved, persistent excessive daytime sleepiness with ESS 18. Did not complete overnight oximetry or follow-up with PCP for additional labs. Status: Chronic Category: Medical Code(s): G47.33 - Obstructive sleep apnea (adult) (pediatric); Z99.89 - Dependence on other enabling machines and devices (4) Gastroenteritis and colitis, viral: Status: Acute Category: Medical Code(s):
[2022-12-09 11:21] LABS: Procalcitonin 0.089 ng/mL (0.0-2.0)
[2022-12-09 11:47] LABS: Lactic Acid 0.9 mmol/L (0.7-2.1)
--- NOTE | 2022-12-09 17:57 | PC.NURSE ---
Addendum entered by Radha Singh RN 12/09/22 17:59: DIARRHEA SAMPLE NOT TAKEN, MIXED WITH URINE. Original Note: A&OX4. TOLERATING RA WELL. AMBULATING IN ROOM WITH STANDBY ASSIST. PT HAS HAD NO C/O NA/VO/ABD PAIN THUS FAR THIS SHIFT. PT HAD ONE SMALL EPISODE OF DIARRHEA AFTER SUPPER TONIGHT. ATE SMALL AMOUNT OF SOFT DIET FOR SUPPER, TOLERATED WELL. PT HAS RESTED INTERMITTENTLY. VSS.
[2022-12-10 04:00] VITALS: BP 97/39; PULSE 63; RESP 18; TEMP 36.8; O2SAT 90; BMI 32.8
[2022-12-10 06:17] LABS: Basophils % 0.2 % (0.1-2.0); Eosinophils # 0.1 K/mm3 (0.0-0.4); Eosinophils % 0.8 % (0.1-12.0); Hematocrit 33.8 % (37.0-47.0); Hemoglobin 11.3 g/dL (12.2-16.2); Lymphocytes # 1.5 K/mm3 (0.7-4.5); Lymphocytes % 23.8 % (10-50); Mean Corpuscular HGB Conc 33.5 g/dL (31.8-35.4); Mean Corpuscular Hemoglobin 29.7 pg (27.0-31.2); Mean Corpuscular Volume 88.6 fl (81-99); Mean Platelet Volume 8.9 fl (7.4-10.4); Monocytes # 0.6 K/mm3 (0.1-1.0); Monocytes % 9.9 % (1.7-9.3); Neutrophils # 4.2 K/mm3 (1.8-7.8); Neutrophils % 65.3 % (37.0-80.0); Platelet Count 225 K/mm3 (142-424); Red Blood Count 3.82 M/mm3 (4.20-5.40); Red Cell Distribution Width 13.3 % (11.5-17.5); White Blood Count 6.4 K/mm3 (4.8-10.8)
[2022-12-10 06:24] LABS: Chloride 104 mmol/L (98-107); Potassium 3.3 mmoL/L (3.5-5.1); Sodium 140 mmol/L (136-145)
[2022-12-10 06:26] LABS: Blood Urea Nitrogen 11 mg/dl (7-17); Creatinine Clearance Estimated 67 mL/min (50-200); Estimated Glomerular Filt Rate 71 ml/min (>60); GFR (African American) 86 ML/MIN (>60)
[2022-12-10 06:27] LABS: Alanine Aminotransferase 28 U/L (12-78); Albumin Level 3.1 g/dl (3.5-5.0); Albumin/Globulin Ratio 1.3 (1.1-1.8); Alkaline Phosphatase 58 U/L (38-126); Anion Gap 9.3 mEq/L (5-15); Aspartate Amino Transferase 35 U/L (14-36); Bilirubin,Total 0.2 mg/dl (0.2-1.3); Calcium 7.9 mg/dl (8.4-10.2); Carbon Dioxide 30 mmol/L (22.0-30.0); Globulin 2.3 g/dL (1.3-3.2); Glucose 93 mg/dl (74-100); Magnesium 1.9 mg/dl (1.6-2.3); Total Protein,Serum 5.4 g/dl (6.3-8.2)
--- NOTE | 2022-12-10 06:27 | PC.NURSE ---
Patient has rested well tonight. Has been to the bathroom multiple times but did not have a BM for a sample. Patient has had no complaints through the night
[2022-12-10 07:46] VITALS: BP 93/42; PULSE 68; RESP 16; TEMP 37; O2SAT 93
--- NOTE | 2022-12-10 08:14 | EXP.DC.SUM ---
General Admission date:: 12/09/22 Discharge date: 12/10/22 HPI HPI HPI: This is a 67-year-old female with past medical history of hypertension and hyperlipidemia, and coronary artery disease who came to the ER complaining of N/V/D, chills and a CRANDALL, started at 10 AM this morning. pt states she took zofran and immodium around 1930 without any relief. pt states she was seen here in the ED this am and was told to return if she wasn't feeling any better. symptoms ongoing since this am. Patient been having nonbloody diarrhea, nausea and vomiting as well as abdominal cramping. Patient usually take aspirin at home with ibuprofen. She denied any fever, was taking amoxicillin for sinusitis. Patient was not tolerating p.o. and decided to come back. Admitted for further management and observation. Hospital Course Hospital Course Hospital Course: Patient admitted with abdominal discomfort and diarrhea, and diagnosed with gastroenteritis. Patient initially started on glucocorticoids, which was subsequently discontinued due to fear of infectious related gastroenteritis and colitis. Patient's diarrhea continued to decrease throughout hospitalization. Patient given gentle maintenance IV fluid hydration with LR throughout hospitalization. Patient's strength gradually increased during hospitalization, and patient trending rapidly back to functional baseline by time of hospital disposition 11/30/2022. Patient's potassium 3.3 on 12/10 so patient discharged home on 40 mill equivalent KCl daily x3 days. Patient received IV Unasyn during hospitalization for empirical bacterial gastroenteritis treatment. Patient sent home on additional 7 days Augmentin therapy. Patient advised to follow-up with primary care physician within 7 days of hospital discharge. Patient also advised to follow-up with patient's general surgeon (Amanda) within 2 weeks of hospital discharge for colonoscopy evaluation. Patient also advised to follow-up with senior ios developer Dr. Weinstein within 4 weeks of hospital discharge for inflammatory bowel disease work-up. Exam Data for Last 24 hours Vital signs and Labs for Last 24 Hours: Temp Pulse Resp BP Pulse Ox 98.6 F 68 16 93/42 L 93 L 12/10/22 07:46 12/10/22 07:46 12/10/22 07:46 12/10/22 07:46 12/10/22 07:46 Laboratory Results - last 24 hr 12/09/22 07:20: ESR 22 12/09/22 07:20: C-Reactive Protein 31.7 H 12/09/22 07:20: Procalcitonin 0.089 12/09/22 11:00: Lactate 0.9 12/10/22 05:57: WBC 6.4 D, RBC 3.82 L, Hgb 11.3 L, Hct 33.8 L, MCV 88.6, MCH 29.7, MCHC 33.5, RDW 13.3, Plt Count 225, MPV 8.9, Neut % (Auto) 65.3, Lymph % (Auto) 23.8, [place] % (Auto) 9.9 H, Eos % (Auto) 0.8, Baso % (Auto) 0.2, Neut # (Auto) 4.2, Lymph # (Auto) 1.5, [place] # (Auto) 0.6, Eos # (Auto) 0.1, Baso # (Auto) 0.0 12/10/22 05:57: Sodium 140, Potassium 3.3 L, Chloride 104, Carbon Dioxide 30, Anion Gap 9.3, BUN 11 D, Creatinine 0.80, Estimated Creat Clear 67, Estimated GFR 71, Est GFR ( Amer) 86, Glucose 93, Calcium 7.9 L, Magnesium 1.9, Total Bilirubin 0.2, AST 35, ALT 28 D, Alkaline Phosphatase 58, Total Protein 5.4 L, Albumin 3.1 L D, Globulin 2.3, Albumin/Globulin Ratio 1.3 I & O for Last 24 hours: Intake & Output 12/07/22 12/08/22 12/09/22 12/10/22 23:59 23:59 23:59 23:59 Intake Total 2039 / 2039 360 / 360 Output Total 800 / 800 300 / 300 Balance 1240 / 1240 60 / 60 Weight 75.296 kg 76.402 kg 78.953 kg *Routine HEENT Exam Head: Present normocephalic Eye: Present EOMI and normal accommodation ENT: Present mucous membranes moist *Routine Neck Exam Neck: Present supple and full ROM Routine Chest/Breast/Axilla Exam Chest wall: Absent tenderness *Routine Respiratory Exam Respiratory: Present CTA bilaterally; Absent accessory muscle use *Routine Cardiovascular Exam Cardiovascular: Present RRR, Normal S1 and Normal S2 *Routine Abdominal Exam Abdominal: Present soft and normoactive bowel sounds *Routine Rectal Exam Comments: def
[2022-12-10 09:22] LABS: Adenovirus F 40/41, stool Not Detected (NotDetected); Astrovirus Not Detected (NotDetected); Campylobacter Not Detected (NotDetected); Clostridium Difficile A/B, PCR Not Detected (NotDetected); Cryptosporidium Not Detected (NotDetected); Cyclospora Cayetanesis Not Detected (NotDetected); Entamoeba histolytica Not Detected (NotDetected); Enteroaggregative E coli Not Detected (NotDetected); Enterotoxigenic E coli Not Detected (NotDetected); Giardia lamblia Not Detected (NotDetected); Plesimonas Shigalloides, PCR Not Detected (NotDetected); Rotavirus A Not Detected (NotDetected); Salmonella, PCR Not Detected (NotDetected); Sapovirus Not Detected (NotDetected); Shiga-like toxin E coli Not Detected (NotDetected); Shigella Enterovasive E coli Not Detected (NotDetected); Vibrio Cholerae Not Detected (NotDetected); Vibrio, PCR Not Detected (NotDetected); Yersinia Entercolitica, PCR Not Detected (NotDetected)
[2022-12-10 16:36] LABS: Enteropathogenic E coli Detected (NotDetected); Norovirus Detected (NotDetected)
--- NOTE | 2022-12-11 14:25 | CARE MANAGER ---
Patient returned phone call related to hospital discharge. 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 She denies any questions or concerns at this time. DENISE Leiva
== END 2022-12-10 09:50 | disposition home or self-care (01) ==
LOC: ER 12-09 03:12 → 2ND 12-09 04:07
PROVIDERS: Nurse Practitioner Family; Admitting Provider Internal Medicine; Emergency Provider Emergency Medicine; PCP Internal Medicine; Visit Provider Internal Medicine
DX: A08.4 Viral intestinal infection, unspecified (principal); E78.5 Hyperlipidemia, unspecified; I10 Essential (primary) hypertension; G47.33 Obstructive sleep apnea (adult) (pediatric); K52.9 Noninfective gastroenteritis and colitis, unspecified; Z79.01 Long term (current) use of anticoagulants
CPT/HCPCS: G0378; 36415; 74177; 80053; 81001; 82150; 83605; 83690; 83735; 84145; 85007; 85025; 85651; 86140; 87045; 87205; 87507; 87635; 87636; 93005; 93041; 99285; C9803; J2405; Q9967; U0003; U0005

== ENCOUNTER → 2022-12-19 12:29 | Outpatient (CLI) | payer MEDICARE, SELFPAY ==
[2022-12-19 13:31] LABS: Potassium 4.3 mmoL/L (3.5-5.1)
== END ==
PROVIDERS: PCP Internal Medicine; Visit Provider Internal Medicine
DX: E87.6 Hypokalemia (principal)
CPT/HCPCS: 84132

== ENCOUNTER 2023-06-28 08:18 | Outpatient (CLI) | payer MEDICARE, OTHER, SELFPAY ==
--- OUTSIDE RECORDS SUMMARY | 2023-06-29 08:20 | XMS_ITS | Continuity of Care Document ---
Author Name Unknown Organization [facility] Address [address] [address] Phone Care Team Providers Care Malt Loader Name Role Phone Mansi Villegas MD Unavailable Unavailable Allergies, Adverse Reactions, Alerts Substance Reaction Status Criticality No Known Allergies Active No Inform ation Medications Medication Instructions Dosage Effective Dates (start - stop) Status Comments prednisone 1 mg tablet take 4 tablet by oral route every day for 2 weeks, then decrease by one tablet every 2 weeks as tolerated - Active Cymbalta 30 mg capsule,delayed release take 1 capsule by oral route 2 times every day 30 MG - Active Actemra 80 mg/4 mL (20 mg/mL) intravenous solution Administer ACTEMRA 4mg/kg IV every 4 weeks - Active gabapentin 100 mg capsule take 1 capsule by oral route 2 times every day 100 MG - Active BISOPROLOL FUMARATE (unknown strength) take 2 tablet by oral route every day Not Available - Active 6.5mg Livalo 2 mg tablet take 1 tablet 3 times a week - Active Ocuvite Adult 50 Plus 250 mg-5 mg-1 mg capsule take 1 capsule once a day - Active aspirin 81 mg tablet,delayed release take 1 tablet by oral route every day 81 MG - Active pantoprazole 40 mg tablet,delayed release take 1 tablet by oral route every day 40 MG - Active Procedures Procedure Date Actemra Infusion Actemra Infusion Actemra Infusion IV Infusion Therapy Up to 1 Hour 2020 Office Visit Level IV x-ray Hip Unilateral 2 views Actemra Infusion Actemra Infusion Actemra Infusion Actemra Infusion Actemra Infusion Actemra Infusion IV Infusion Therapy Up to 1 Hour 2019 Office Visit Level V Actemra Infusion Actemra Infusion Actemra Infusion IV Infusion Therapy Up to 1 Hour 2019 Actemra Infusion Actemra Infusion Actemra Infusion IV Infusion Therapy Up to 1 Hour 2019 Actemra Infusion Actemra Infusion Actemra Infusion IV Infusion Therapy Up to 1 Hour 2019 Actemra Infusion Actemra Infusion Actemra Infusion IV Infusion Therapy Up to 1 Hour 2019 Actemra Infusion Actemra Infusion IV Infusion Therapy Up to 1 Hour 2019 Actemra Infusion Actemra Infusion IV Infusion Therapy Up to 1 Hour 2019 Actemra Infusion Actemra Infusion IV Infusion Therapy Up to 1 Hour 2019 Office Visit Level V Actemra Infusion Actemra Infusion IV Infusion Therapy Up to 1 Hour 2019 Actemra Infusion Actemra Infusion IV Infusion Therapy Up to 1 Hour 2019 Actemra Infusion Actemra Infusion IV Infusion Therapy Up to 1 Hour 2019 Office Visit Level V DEXA Bone Density Study 1 + Sites Actemra Infusion Actemra Infusion IV Infusion Therapy Up to 1 Hour 2019 New Office Consult Level IV Chest X-ray 2 Views EL-anti-CCP/2 Dna Antb 1 Stranded Dna Antb [place]/2 Stranded Sm,LYE TREATER/Sm,SSA,SSB,Scl-70,chrom,centromer Tb Cell Mediated Antign Respnse Gamma In Rheumatoid Factor Pasquale RF/3 IgM 019 RF/3 IgG/IgA Advance Directives Directive Yes / No Effective Date File Name No Information Encounters Encounter Description Practice Location Reason(s) For Visit Diagnoses Date Provider Providers Copied on Encounter [facility] [address] [place] [address], [id number], tel:[phone] [facility] No Information 1 Bakari Nazario. [address], [id number]. tel:[phone] [facility] [address] [place] [address], [id number], [place] tel:[phone] [facility] No Information 1 Colin Herrera. [address], [address]. tel:[phone] Referring Provider: Alberto Rowley MD E, [address] [place] [address] [address], [address]. tel:[phone] [facility] [address] [place] [address], [id number], [place] tel:[phone] [facility] Follow Up of Temporal Arteries/P MR (chief complaint) Osteoarthr itis (chief complaint) Fibromyalg ia Syndrome (chief complaint) Osteopenia (chief complaint) Immunosuppress ionHigh CholesterolGen eralized osteoarthritis Other giant cell arteritisPolym yalgia rheumaticaFibr omyalgiaOsteop eniaCurrent Use of Steroid MedicationBody mass index (BMI) 34.0-34.9, adult 1 Aliyah Zaldivar. [address], [place] [address], [place], [place], [id number]. tel:[phone] Office Visit Level IV [facility] [address], [id number], tel:[phone] [facility] No Information 1 [facility]. [address], [place] [address], [place], [address]. tel:[phone] Referring Provider: Alberto Meyers, [address] [place] [address], [address]. tel:[phone] [facility] [address] [place] [address], [id number], tel:[phone] [facility] No Information 0 [facility]. [address], [place] [address], [place], [address]. tel:[phone] Referring Provider: Alberto Meyers, [address] [place] [address], [address]. tel:[phone] Office Visit Level V [facility] [address] [place] [address], [id number], [place] tel:[phone] [facility] Follow Up of Temporal Arteries/P MR (chief complaint) Osteoarthr itis (chief complaint) Fibromyalg ia Syndrome (chief complaint) Osteopenia (chief complaint) Immunosuppress ionHigh CholesterolGen eralized osteoarthritis Other giant cell arteritisPolym yalgia rheumaticaFibr omyalgiaOsteop eniaBody mass index (BMI) 29.0-29.9, adultCurrent Use of Steroid Medication 0 [facility]. [address], [address], [address]. tel:[phone] Specialist : David Aguilera, [address], [place], [address]. tel:[phone] erring Provider: Alberto Meyers, [address] [place] [address] [place] [address], [address]. tel:[phone] [facility] [address] [place] [address], [id number], [place] tel:[phone] [facility] No Information 0 [place] Javier. [address], Suite [facility], [place], [address]. tel:[phone] Referring Provider: Alberto Meyers, [address] [place] [address] [place] [address], [address]. tel:[phone] [facility] [address] [place] [address], [id number], [place] tel:[phone] [facility] No Information 0 [place] Javier. [address], [place] [address], [place], [address]. tel:[phone] Referring Provider: Alberto Meyers, [address] [place] [address] [place] [address], [address]. tel:[phone] [facility] [address] [facility] [facility] [address] [place] [address], [id number], [place] tel:[phone] [facility] No Information 0 [place] Javier. [address], [address], [place], [address]. tel:[phone] Referring Provider: Alberto Meyers, [address] [place] [address] [place] [address], [address]. tel:[phone] [facility] [address] [place] [facility] [address], [place], [id number], [place] tel:[phone] [facility] No Information 0 [facility]. [address], [address], [address]. tel:[phone] Referring Provider: Alberto Meyers, [address] [place] [address] [place] [address], [address]. tel:[phone] [facility] [address] [place] [address], [id number], [place] tel:[phone] [facility] No Information 0 [place] Javier. [address], [address], [address]. tel:[phone] Referring Provider: Alberto Meyers, [address] [place] [address] [place] [address], [address]. tel:[phone] [facility] [address] [place] [address], [id number], [place] tel:[phone] [facility] No Information 0 [facility]. [facility] [address] Mei, [address], [address]. tel:[phone] Referring Provider: Alberto Meyers, [address] [place] [address] [place] [address], [address]. tel:[phone] Office Visit Level V [facility] [address] [place] [address], [id number], [place] tel:[phone] [facility] Follow Up of Temporal Arteries/P MR (chief complaint) Osteoarthr itis (chief complaint) Fibromyalg ia Syndrome (chief complaint) Osteopenia (chief complaint) Immunosuppress ionHigh CholesterolGen eralized osteoarthritis Other giant cell arteritisPolym yalgia rheumaticaFibr omyalgiaOsteop eniaBody mass index (BMI) 29.0-29.9, adultCurrent Use of Steroid Medication 0 [place] Javier. [address], [address], [place], [address]. tel:[phone] Referring Provider: Alberto Meyers, [address] [place] [address], [address]. tel:[phone] [facility], [address] [facility] [address] [place] [address], [id number], [place] tel:[phone] [facility].. No Information 0 [place] Javier. [address], [address], [place], [address]. tel:[phone] Referring Provider: Alberto Meyers, [address] [place] [address] [place] [address], [address]. tel:[phone] [facility] [address], [id number], [place] tel:[phone] [facility].. No Information 0 [place] Javier. [address], [address], [place], [address]. tel:[phone] Referring Provider: Alberto Meyers, [address] [place] [address] [address] [place] [address], [address]. tel:[phone] [facility], [address], [id number], [place] tel:[phone] [facility].. No Information 0 [place] Javier. [address], [address], [place], [address]. tel:[phone] Referring Provider: Alberto Meyers, [address] [place] [address] [place] [address], [address]. tel:[phone] [facility] [address] [place] [address], [id number], tel:[phone] [facility] Follow Up of Temporal Arteries/P MR (chief complaint) Osteoarthr itis (chief complaint) Fibromyalg ia Syndrome (chief complaint) Osteopenia (chief complaint) Other giant cell arteritisPolym yalgia rheumaticaBody mass index (BMI) 29.0-29.9, adultGeneraliz ed osteoarthritis Immunosuppress ionHigh CholesterolCur rent Use of Steroid MedicationFibr omyalgiaOsteop enia 0 [facility]. [facility] [address], [address]. tel:[phone] Office Visit Level V [facility] [address] [place] [address], [id number], tel:[phone] [facility] No Information 0 [facility]. [facility] Arlin Mei, [address], [address]. tel:[phone] Referring Provider: Alberto Meyers, [address] [place] [address], [address]. tel:[phone] [facility] [address] [place] [address], [id number], tel:[phone] [facility] No Information 0 [facility]. [facility] [address]lin Mei, [address], [address]. tel:[phone] Referring Provider: Alberto Meyers, [address] [place] [address] [place] [address], [address]. tel:[phone] New Office Consult Level IV [facility] [address] [place] [address], [id number], tel:[phone] [facility] Abnormal Lab Study (chief complaint) Temporal Arteries/P MR (chief complaint) ArthralgiaFati Aki RAISEDPolymyal sue rheumaticaBody mass index (BMI) 28.0-28.9, adultOther giant cell arteritis 9 [facility]. [facility] [address] Mei, [facility] [address], [place], [address]. tel:[phone] Referring Provider: Alberto Meyers, [address] [place] [address] [address] [place] [address], [address]. tel:[phone] [facility], [address] [place] [address], [id number], tel:[phone] [facility] No Information 9 [facility]. [facility] Arlin Yin, [facility] [address], [place], [address]. tel:[phone] Referring Provider: Alberto Meyers, [address] [place] [address] [address] [place] [address], [address]. tel:[phone] Family History Family Member Type Diagnosis Age At Onset Father Problem (finding) arthritis Mother Problem (finding) Diabetes heart Brother Problem (finding) fibromyalgia Immunizations Vaccine Date Status Comments Flu (split) (3 yrs or older) administered Source: Other Provider Payers Payer name Insurance type Covered republican ID Authoriza tion(s) Medicare [id number] [facility] [address] [place] [id number] Social History Type Description Quantity Date Captured Comments Alcohol Use Details Unknown Caffeine Use Details Unknown Tobacco Use Status No Information Smoking Status No Information Sex Female Chief Complaint And Reason For Visit No Information Reason For Referral Reason For Referral No Information Plan Of Treatment Date Type Action Status Goal Lifestyle educat ion regarding diet completed Goal Lifestyle educat ion regarding diet completed Goal Lifestyle educat ion regarding diet completed Goal Lifestyle educat ion regarding diet completed Referral Ordered: Vascular Surgery (related to Other giant cell arteritis) ordered Referral Ordered: Referrals: Vascular Surgery. Evaluate and treat ordered Patient Education Temporal Arter itis: Care Instructions completed Patient Education Polymyalgia Rh eumatica: Care Instruct~ completed Future Order: Radiology Order Hi p X-ray; Unilateral; Complete (2+ views) ([id number]), Ordered on: Ordered Future Order: Lab Order CBC With Differential/Platelet ([id number]), Ordered on: Ordered Future Order: Lab Order Comp. Me tabolic Panel (14) ([id number]), Ordered on: Ordered Future Order: Lab Order C-Reacti ve Protein, Quant ([id number]), Ordered on: Ordered Future Order: Lab Order Sediment ation Rate-Westergren ([id number]), Ordered on: Ordered Future Order: Lab Order QuantiFE MARIELENA TB Gold (In Tube) ([id number]), Ordered on: Ordered Future Order: Lab Order CBC With Differential/Platelet ([id number]), Ordered on: Ordered Future Order: Lab Order Comp. Me tabolic Panel (14) ([id number]), Ordered on: Ordered Future Order: Lab Order C-Reacti ve Protein, Quant ([id number]), Ordered on: Ordered Future Order: Lab Order Sediment ation Rate-Westergren ([id number]), Ordered on: Ordered Future Order: Lab Order Lipid Pa darryn ([id number]), Ordered on: Ordered Future Order: Lab Order CBC With Differential/Platelet ([id number]), Ordered on: Ordered Future Order: Lab Order Comp. Me tabolic Panel (14) ([id number]), Ordered on: Ordered Future Order: Lab Order C-Reacti ve Protein, Quant ([id number]), Ordered on: Ordered Future Order: Lab Order Creatine Kinase,Total,Serum ([id number]), Ordered on: Ordered Future Order: Lab Order Lipid Pa darryn ([id number]), Ordered on: Ordered Future Order: Lab Order Sediment ation Rate-Westergren ([id number]), Ordered on: Ordered Future Order: Lab Order Comp. De tabolic Panel (14) ([id number]), Ordered on: Ordered Future Order: Lab Order CBC With Differential/Platelet ([id number]), Ordered on: Ordered Future Order: Lab Order CBC With Differential/Platelet ([id number]), Ordered on: Ordered Future Order: Lab Order Comp. De tabolic Panel (14) ([id number]), Ordered on: Ordered Future Order: Lab Order C-Reacti ve Protein, Quant ([id number]), Ordered on: Ordered Future Order: Lab Order Creatine Kinase,Total,Serum ([id number]), Ordered on: Ordered Future Order: Lab Order Sediment ation Rate-Westergren ([id number]), Ordered on: Ordered Future Order: Radiology Order Ch est X-ray; AP/Lat (2 views) ([id number]), Ordered on: Ordered Future Order: Radiology Order Antonio ne density study (by DEXA); axial skeleton (e.g., hips, pelvis, spine) ([id number]), Ordered on: Ordered Future Order: Radiology Order Ch est X-ray, AP/Lat (2 Views) ([id number]), Ordered on: Ordered Future Order: Lab Order CBC With Differential/Platelet ([id number]), Ordered on: Ordered Future Order: Lab Order Comp. Me tabolic Panel (14) ([id number]), Ordered on: Ordered Future Order: Lab Order C-Reacti ve Protein, Quant ([id number]), Ordered on: Ordered Future Order: Lab Order Sediment ation Rate-Westergren ([id number]), Ordered on: Ordered Future Order: Lab Order Hepatiti s Panel (4) ([id number]), Ordered on: Ordered Future Order: Lab Order Creatine Kinase,Total,Serum ([id number]), Ordered on: Ordered Future Order: Lab Order Antinucl ear Antibodies, LM, IFA ([id number]), Ordered on: Ordered Future Order: Lab Order Cyclic Citrullinated Peptide-4P (Theratest) (CCP4P), Ordered on: Ordered Future Order: Lab Order EL-LM 9C NASRA Method, IgG (Theratest) (ANA9C), Ordered on: Ordered Future Order: Lab Order Rheuma toid Factor/3 IgM, IgG, IgA (Theratest) (RF3), Ordered on: Ordered Future Order: Lab Order Quanti FERON - TB Gold IT Plus (Theratest) (TBGP), Ordered on: Ordered History Of Present Illness Encounter Date Complaint History Of Prese nt Illness Follow Up of Temporal Arteries/P MR Osteoarthritis Fibromyalgia Syndrome Osteopenia Follow Up of Temporal Arteries/P MR Osteoarthritis Fibromyalgia Syndrome Osteopenia Follow Up of Temporal Arteries/P MR Osteoarthritis Fibromyalgia Syndrome Osteopenia Follow Up of Temporal Arteries/P MR Osteoarthritis Fibromyalgia Syndrome Osteopenia Temporal Arteries/PMR Abnormal Lab Study Functional Status Date Functional Assessmen t No Information Instructions Date Instruction Additional Infor aaliyah Today I want her to try lowering by 1 mg every 2 weeks as tolerated. Risks and benefits reviewed Related to Current Use of Steroid Medication 1. Calcium and vitam in D supplements should be taken unless otherwise contraindicated. 2. DXA scan should be monitored approximately every 2 years Related to Osteopenia 1. H & P consistent with this diagnosis. 2. Encourage aerobic activity and sleep hygiene.3. If she has not had a sleep study/consultation consider getting this done. 4. Tylenol PRN is ok as directed. 5. Continue duloxetine 30 mg once/day. She seems to be doing fine today Related to Fibromyalgia 1. Tylenol PRN is ok as directed. 2. Weight loss would be helpful3. Reporting increased left groin pain x 2 weeks. No trauma or falls. X-ray left hip. Related to Generalized osteoarthritis 1. She is on 5 mg/da y of prednisone. She seems stable. We are slowing tapering this. Today I want her to start tapering by 1mg every 2 weeks as tolerated. Risks and benefits reviewed2. 06/2020 her inflammatory markers were normal. 3.We have her on Actemra as a steroid sparing agent. She got the 1st dose of this 08/03/2019. 4. Follow up in 6-8 weeks Related to Polymyalgia rheumatica 1. She was unable to get the temporal artery biopsy done. 2. She is now on 5 mg/day of prednisone.3. As a steroid sparing agent we started Actemra 08/03/2019. 4. Will taper by 1mg every 2 weeks as tolerated5. Check labs again prior to next visit Related to Other giant cell arteritis 1. Hold if the patie nt develops infection. 2. Avoid live vaccines while on this medication. 3. No recent serious infections4. No infusion reactions. 5. Also hold this medication perioperatively if the patient is going to have a surgical procedure Related to Immunosuppression Actemra has been jah wn to increase lipids in some individuals. Therefore it is recommended by the research nurse practitioner and FDA to monitor lipids more closely in patients who are taking this medication. We will order a lipid panel with next lab draw Related to High Cholesterol Lifestyle education regarding di et Related to Body mass index [BMI] 34.0-34.9, adult 1. Hold if the patie nt develops infection. 2. Avoid live vaccines while on this medication. 3. No recent serious infections4. No infusion reactions. 5. Also hold this medication perioperatively if the patient is going to have a surgical procedure Related to Immunosuppression Actemra has been jah wn to increase lipids in some individuals. Therefore it is recommended by the research nurse practitioner and FDA to monitor lipids more closely in patients who are taking this medication. We will order a lipid panel with next lab draw Related to High Cholesterol Today I want her to try lowering to 5 mg/day. Risks and benefits reviewed Related to Current Use of Steroid Medication 1. Tylenol PRN is ok as directed. 2. Weight loss would be helpful Related to Generalized osteoarthritis 1. H & P consistent with this diagnosis. 2. Encourage aerobic activity and sleep hygiene.3. If she has not had a sleep study/consultation consider getting this done. 4. Tylenol PRN is ok as directed. 5. Continue duloxetine 30 mg once/day. She seems to be doing fine today Related to Fibromyalgia 1. She was unable to get the temporal artery biopsy done. 2. She is now on 10 mg/day of prednisone.3. As a steroid sparing agent we started Actemra 08/03/2019. 4. Lower prednisone to 5 mg/day. 5. Check labs again prior to next visit Related to Other giant cell arteritis 1. She is on 10 mg/d ay of prednisone. She seems stable. We are slowing tapering this. Today I want her to try and lower the steroids to 5 mg/day. Risks and benefits reviewed2. 05/09/2020 her inflammatory markers were normal. 3. Today I gave her an educational handout and a new lab order4. We have her on Actemra as a steroid sparing agent. She got the 1st dose of this 08/03/2019. 5. Follow up in 6-8 weeks Related to Polymyalgia rheumatica 1. Calcium and vitam in D supplements should be taken unless otherwise contraindicated. 2. DXA scan should be monitored approximately every 2 years Related to Osteopenia Lifestyle education regarding di et Related to Body mass index [BMI] 33.0-33.9, adult 1. Calcium and vitam in D supplements should be taken unless otherwise contraindicated. 2. DXA scan should be monitored approximately every 2 years. Related to Osteopenia Today I want her to try lowering to 20 mg/day. Risks and benefits reviewed. Related to Current Use of Steroid Medication Actemra has been jah wn to increase lipids in some individuals. Therefore it is recommended by the research nurse practitioner and FDA to monitor lipids more closely in patients who are taking this medication. We will order a lipid panel with next lab draw. Related to High Cholesterol 1. Hold if the patie nt develops infection. 2. Avoid live vaccines while on this medication. 3. No recent serious infections4. No infusion reactions. 5. Also hold this medication perioperatively if the patient is going to have a surgical procedure. Related to Immunosuppression 1. Tylenol PRN is ok as directed. 2. Weight loss would be helpful. Related to Generalized osteoarthritis 1. She was unable to get the temporal artery biopsy done. 2. She is now on 30 mg/day of prednisone.3. As a steroid sparing agent we started Actemra 08/03/2019. 4. Lower prednisone to 20 mg/day. 5. Check labs again prior to next visit. Related to Other giant cell arteritis 1. She is on 30 mg/d ay of prednisone. She seems stable. We are slowing tapering this. Today I want her to try and lower the steroids to 20 mg/day. Risks and benefits reviewed. 2. 06/05/2019 her inflammatory markers were normal. 3. We will mail her a new lab order and educational handout. 4. We have also started Actemra as a steroid sparing agent. She got the 1st dose of this 08/03/2019. 5. Follow up in 6 weeks. Related to Polymyalgia rheumatica 1. H & P consistent with this diagnosis. 2. Encourage aerobic activity and sleep hygiene.3. If she has not had a sleep study/consultation consider getting this done. 4. Tylenol PRN is ok as directed. 5. Continue duloxetine 30 mg once/day. She seems to be doing fine today. Related to Fibromyalgia 1. Calcium and vitam in D supplements should be taken unless otherwise contraindicated. 2. DXA scan should be monitored approximately every 2 years. Related to Osteopenia 1. H & P consistent with this diagnosis. 2. Encourage aerobic activity and sleep hygiene.3. If she has not had a sleep study/consultation consider getting this done. 4. Tylenol PRN is ok as directed. 5. I am going to try her on Cymbalta 30 mg once/day. Risks and benefits reviewed. Related to Fibromyalgia 1. Hold if the patie nt develops infection. 2. Avoid live vaccines while on this medication. 3. No recent serious infections4. No infusion reactions. 5. Also hold this medication perioperatively if the patient is going to have a surgical procedure. Related to Immunosuppression Lower today to 40 mg /day x 1 month then go to 30 mg/day. Related to Current Use of Steroid Medication Actemra has been jah wn to increase lipids in some individuals. Therefore it is recommended by the research nurse practitioner and FDA to monitor lipids more closely in patients who are taking this medication. Related to High Cholesterol 1. Tylenol PRN is ok as directed. 2. Weight loss would be helpful. Related to Generalized osteoarthritis 1. She was unable to get the temporal artery biopsy done. 2. She is now on 60 mg/day of prednisone.3. As a steroid sparing agent we started Actemra 08/03/2019. 4. Lower prednisone to 40 mg/day x 1 month then go to 30 mg/day. Risks and benefits reviewed. 5. Check labs again prior to next visit. Related to Other giant cell arteritis 1. She is on 60 mg/d ay of prednisone. She is still having some pain/issues. I think she also has fibromyalgia see below. 2. 06/05/2019 her inflammatory markers were normal. 3. Lower prednisone to 40 mg/day x 1 month then go to 30 mg/day. Risks and benefits reviewed. 4. We have also started Actemra as a steroid sparing agent. She got the 1st dose of this 08/03/2019. 5. I gave her a handout on PMR to take home and review. 6. Check labs again prior to next appointment. 7. Follow up in 2 months. Related to Polymyalgia rheumatica Lifestyle education regarding di et Related to Body mass index (BMI) 29.0-29.9, adult 1. History and exam compatible with PMR and giant cell arteritis. She reports new/different headaches and vision changes. 2. I am going to refer to surgeon for temporal artery biopsy to try and confirm. 3. We will go ahead and start treatment immediately with 60 mg/day of prednisone. Risks and benefits reviewed. 4. We will order a DXA scan. 5. Labs and x-rays today. 6. 3-4 years ago she was given steroids for an ear problem and she experienced mood swings, anger outbursts/thoughts, and homicidal ideations. 7. I am going to go ahead and see if her insurance might cover Actemra. This has been used as a steroid sparing agent for this condition with success. 8. I gave her handouts on PMR/GCA to take home. 9. She will see me again in 2 months. Related to Polymyalgia rheumatica 1. History and exam compatible with PMR and giant cell arteritis. She reports new/different headaches and vision changes. 2. I am going to refer to surgeon for temporal artery biopsy to try and confirm. 3. We will go ahead and start treatment immediately with 60 mg/day of prednisone. Risks and benefits reviewed. 4. We will order a DXA scan. 5. Labs and x-rays today. 6. 3-4 years ago she was given steroids for an ear problem and she experienced mood swings, anger outbursts/thoughts, and homicidal ideations. 7. I am going to go ahead and see if her insurance might cover Actemra. This has been used as a steroid sparing agent for this condition with success. 8. I gave her handouts on PMR/GCA to take home. 9. She will see me again in 2 months. Related to Other giant cell arteritis I think she has PMR and GCA. See below. Related to Arthralgia Labs and x-rays to e valuate for autoimmune conditions. I suspect she has PMR. Related to Fatigue 1. Increased age and female sex - ESR values increase markedly with age and are slightly higher among women than men. As a result, any single set of normal values will not be valid for the population at large. One can roughly correct ESR for age by using the following formulas: the upper limit of the reference range equals (age in years)/2 for men and (age in years + 10)/2 for women.2. Anemia - It has long been known that anemia increases the sedimentation rate. The sedimentation of red blood cells is presumably impeded by other red blood cells; sedimentation is thus more rapid in anemia, in which this retardation is lessened, thus increasing the ESR.3. Obesity - Both ESR and CRP can be elevated in obesity; this is due at least in part to interleukin (IL)-6 secretion by adipose tissue.4. Technical factors - Tilting of the ESR tube or high room temperature may increase the ESR.5. ESR/CRP elevation is a non specific finding. Many factors can influence these tests. 6. Labs today Related to ESR RAISED Lifestyle education regarding di et Related to Body mass index (BMI) 28.0-28.9, adult Assessments Type Assessment Date No Information Patient Care Teams Name Effective Dates (start - stop) Status Members No Information
== END 2023-06-28 23:59 ==
LOC: LAB.DROPOF 06-29 08:18
PROVIDERS: PCP Internal Medicine; Visit Provider Student in an Organized Health Care Education/Training Program
DX: N39.0 Urinary tract infection, site not specified (principal); B96.89 Other specified bacterial agents as the cause of diseases classified elsewhere
CPT/HCPCS: 87086

== ENCOUNTER 2023-09-03 11:25 | Outpatient (CLI) | payer MEDICARE, OTHER, SELFPAY ==
--- NOTE | 2023-09-03 11:30 | XR_ITS ---
FINAL REPORT CLINICAL HISTORY: LUMBAR BACK PAIN X FEW WEEKS FINDINGS: LUMBAR SPINE Five views demonstrate no acute fracture. There are mild and moderate degenerative changes with small osteophytes. Multilevel facet arthropathy is identified. There is mild vascular calcification. There is no malalignment. IMPRESSION: Degenerative changes as detailed above. Reviewed, Interpreted and Dictated by Mark Michelle III, MD Transcribed by Amber Arzola Authenticated and . [facility]
[2023-09-03 15:34] LABS: Alanine Aminotransferase 37 U/L (12-78); Albumin Level 4.3 g/dl (3.5-5.0); Albumin/Globulin Ratio 1.8 (1.1-1.8); Alkaline Phosphatase 74 U/L (38-126); Anion Gap 9.5 mEq/L (5-15); Aspartate Amino Transferase 43 U/L (14-36); Bilirubin,Total 0.4 mg/dl (0.2-1.3); Blood Urea Nitrogen 14 mg/dl (7-17); Calcium 9.2 mg/dl (8.4-10.2); Carbon Dioxide 35 mmol/L (22.0-30.0); Chloride 99 mmol/L (98-107); Chol/HDL Ratio 2.7 (1-3.5); Cholesterol 220 mg/dl (140-200); Estimated Glomerular Filt Rate 71 ml/min (>60); GFR (African American) 86 ML/MIN (>60); Globulin 2.4 g/dL (1.3-3.2); Glucose 81 mg/dl (74-100); HDL Cholesterol 82 mg/dl (40-60); Potassium 4.5 mmoL/L (3.5-5.1); Sodium 139 mmol/L (136-145); Total Protein,Serum 6.7 g/dl (6.3-8.2); Triglycerides 170 mg/dl (30-150); VLDL Cholesterol 34 mg/dL (0-40)
[2023-09-03 15:45] LABS: Direct LDL Cholesterol 77.22 mg/dL (100-129)
[2023-09-03 16:23] LABS: Vitamin B12 384 pg/mL (239-931)
== END 2023-09-03 23:59 ==
PROVIDERS: PCP Internal Medicine; Visit Provider Internal Medicine
DX: I10 Essential (primary) hypertension (principal); M54.59 Other low back pain; Z79.899 Other long term (current) drug therapy
CPT/HCPCS: 72110; 80053; 80061; 82607

== ENCOUNTER 2023-09-09 16:35 | Outpatient (CLI) | payer MEDICARE, OTHER, SELFPAY ==
--- NOTE | 2023-09-09 16:38 | MM_ITS ---
PROCEDURE INFORMATION: Exam: MG Bilateral Screening 3D Mammography Exam date and time: 09/09/2023 4:24 PM Age: 68 years old Clinical indication: Screening examination TECHNIQUE: Imaging protocol: Bilateral Screening tomosynthesis and 2D mammography including computer-aided detection (CAD) when performed. COMPARISON: 1. MG MM DIG SCREENING MAMM BI W/CAD 07/30/2022 10:53 AM 2. MG MM DIG SCREENING MAMM BI W/CAD 07/21/2021 9:53 AM FINDINGS: MAMMOGRAPHY: Breast composition: There are scattered areas of fibroglandular density. Mass: None. Architectural distortion: None. Calcifications: No suspicious calcifications. Asymmetric density: None. Skin thickening: None. Axillary adenopathy: None. IMPRESSION: No mammographic evidence of malignancy. Annual screening is recommended unless otherwise clinically indicated. ASSESSMENT: BI-RADS Category 1: Negative
== END 2023-09-09 23:59 ==
PROVIDERS: PCP Internal Medicine; Visit Provider Internal Medicine
DX: Z12.31 Encounter for screening mammogram for malignant neoplasm of breast (principal)
CPT/HCPCS: 77063; 77067